=== PATIENT | male | born 1975 | race Caucasian/White ===

== ENCOUNTER 2017-01-04 13:02 | Emergency (ER) | payer OTHER, SELFPAY ==
[2017-01-04 15:07] VITALS: BP 127/93
[2017-01-04] MEDS ORDERED: Ondansetron 4 MG/2 ML SDV IVPUSH ONE (15:27)
[2017-01-04] MEDS ORDERED: LORazepam 2 MG/ML MDV IVPUSH ONE ×2 (15:27→16:54)
--- NOTE | 2017-01-04 15:28 | EDM.PDOC ---
ED HPI Behavioral Health - General Chief Complaint: Drug or Alcohol Abuse Stated Complaint: DETOX SYMPTOMS/ANXIETY Time Seen by Provider: 01/04/17 15:28 Source: Reports: Patient Exam Limitations: Reports: No limitations - History of Present Illness INITIAL COMMENTS - FREE TEXT/NARRATIVE: pt arrived stating he had his last drink yesterday. he has been very shakey. He normally drinks about 18 beers per day. He does not want to go to [place] unless he has to. He wants to try to do it on his own. Onset of Symptoms: Reports: gradual Duration of Symptoms: Reports: Week(s): Severity: moderate Context, Behavioral Health: Reports: other (pt has a friend who also has been drinking alot. ) Associated Symptoms: Reports: agitation, decreased concentration - Related Data Allergies Allergy/AdvReac Type Severity Reaction Status Date / Time amoxicillin [Amoxicillin] Allergy Cannot Verified 01/04/17 15:07 Remember codeine Allergy Cannot Verified 01/04/17 15:07 Remember erythromycin lactobionate Allergy Cannot Verified 01/04/17 15:07 [From Erythrocin] Remember Home Medications: Home Meds Ibuprofen [Advil] 200 mg PO ASDIRECTED 11/27/15 [History] Abdominal Pain Score (Numeric/FACES): 7 Past Medical History Gastrointestinal History: Reports: GERD Musculoskeletal History: Reports: Fracture Neurological History: Reports: Seizure Psychiatric History: Reports: Addiction, Depression Endocrine/Metabolic History: Reports: Other (see below) Other Endocrine/Metabolic History: hyperglycemia - Infectious Disease History Infectious Disease History: Reports: Chicken pox - Past Surgical History GI Surgical History: Reports: EGD Social & Family History - Tobacco Use Smoking Status *Q: Light Tobacco Smoker Years of Tobacco use: 10 Packs/Tins Daily: 0.5 Used Tobacco, but Quit: No Month Tobacco Last Used: May Second Hand Smoke Exposure: No - Caffeine Use Caffeine Use: Reports: Coffee - Alcohol Use Days Per Week of Alcohol Use: 7 Number of Drinks Per Day: 18 Total Drinks Per Week: 126 - Recreational Drug Use Recreational Drug Use: No ED ROS GENERAL - Review of Systems Review Of Systems: See Below Constitutional: Reports: no symptoms HEENT: Reports: No symptoms Respiratory: Reports: no symptoms Cardiovascular: Reports: No symptoms Endocrine: Reports: no symptoms GI/Abdominal: Reports: No symptoms : Reports: no symptoms Skin: Reports: no symptoms Neurological: Reports: tremors, other (pt is very shaky and is in the midst of his withdrawal. ) ED EXAM, BEHAVIORAL HEALTH - Physical Exam Exam: See Below Text/Narrative:: alot of tremors and is feeling quite agitated. Exam Limited By: No limitations General Appearance: alert, anxious Ears: normal TMs Nose: normal inspection Throat/Mouth: Normal inspection Head: atraumatic Neck: normal inspection Respiratory/Chest: no respiratory distress Cardiovascular: regular rate, rhythm GI/Abdominal: soft, tender Rectal (Males) Exam: Deferred Back Exam: normal inspection Extremities: normal inspection Neurological: alert, oriented x 3, other (pt is very agitated. ) Psychiatric: alert, normal cognition COURSE, BEHAVIORAL HEALTH COMP - Course Vital Signs: Last Vital Signs Temp 37.6 C 01/04/17 15:05 Pulse 81 01/04/17 15:05 Resp 16 01/04/17 15:05 BP 127/93 H 01/04/17 15:05 Pulse Ox 98 01/04/17 15:05 Orders, Labs, Meds: Active Orders 24 hr Category Date Time Status Sodium Chloride 0.9% [Normal Saline] 1,000 ml Med 01/04/17 15:30 Active IV ASDIRECTED Medication Orders Sodium Chloride (Normal Saline) 1,000 mls @ 999 mls/hr IV ASDIRECTED MILES Last Admin: 01/04/17 16:32 Dose: 999 mls/hr Laboratory Tests 01/04/17 01/04/17 01/04/17 Range/Units 15:48 15:48 15:48 WBC 4.3 L (4.5-11.0) K/uL RBC 4.73 (4.30-5.90) M/uL Hgb 15.5 H (12.0-15.0) g/dL Hct 45.2 (40.0-54.0) % MCV 96 (80-98) fL MCH 33 H (27-31) pg MCHC 34 (32-36) % Plt Count 108 L (150-400) K/uL Neut % (Auto) 53 (36-66) % Lymph % (Auto) 30 (24-44) % [place] % (Auto) 14 H (2-6) % Eos % (Auto) 2 (2-4) % Baso % (Auto) 2 H (0-1) % Sodium 140 (140-148) mmol/L Potassium 3.8 (3.6-5.2) mmol/L Chloride 100 (100-108) mmol/L Carbon Dioxide 28 (21-32) mmol/L Anion Gap 11.9 (5.0-14.0) mmol/L BUN 7 (7-18) mg/dL Creatinine 0.8 (0.8-1.3) mg/dL Est Cr Clr Drug Dosing 104.64 mL/min Estimated GFR (MDRD) > 60 (>60) Glucose 76 (74-106) mg/dL Calcium 9.3 (8.5-10.1) mg/dL Total Bilirubin 1.3 H D (0.2-1.0) mg/dL AST 283 H D (15-37) U/L ALT 303 H (12-78) U/L Alkaline Phosphatase 64 (46-116) U/L Total Protein 8.2 (6.4-8.2) g/dL Albumin 4.8 (3.4-5.0) g/dL Globulin 3.4 (2.3-3.5) g/dL Albumin/Globulin Ratio 1.4 (1.2-2.2) Lipase (73-393) U/L Urine Color Urine Appearance Urine pH (4.5-8.0) Ur Specific [place] (1.008-1.030) Urine Protein (NEGATIVE) mg/dL Urine Glucose (UA) (NEGATIVE) mg/dL Urine Ketones (NEGATIVE) mg/dL Urine Occult Blood (NEGATIVE) Urine Nitrite (NEGAITVE) Urine Bilirubin (NEGATIVE) Urine Urobilinogen (NORMAL) mg/dL Ur Leukocyte Esterase (NEGATIVE) Urine RBC (0-5) Urine WBC (0-5) Ur Epithelial Cells Amorphous Sediment Urine Bacteria Urine Mucus Urine Opiates Screen (NEGATIVE) Ur Oxycodone Screen (NEGATIVE) Urine Methadone Screen (NEGATIVE) Ur Propoxyphene Screen (NEGATIVE) Ur Barbiturates Screen (NEGATIVE) Ur Tricyclics Screen (NEGATIVE) Ur Phencyclidine Scrn (NEGATIVE) Ur Amphetamine Screen (NEGATIVE) U Methamphetamines Scrn (NEGATIVE) Urine MDMA Screen (NEGATIVE) U Benzodiazepines Scrn (NEGATIVE) U Cocaine Metab Screen (NEGATIVE) U Marijuana (THC) Screen (NEGATIVE) Ethyl Alcohol 82 mg/dL 03/07/17 03/07/17 03/07/17 Range/Units 15:48 15:48 16:55 WBC (4.5-11.0) K/uL RBC (4.30-5.90) M/uL Hgb (12.0-15.0) g/dL Hct (40.0-54.0) % MCV (80-98) fL MCH (27-31) pg MCHC (32-36) % Plt Count (150-400) K/uL Neut % (Auto) (36-66) % Lymph % (Auto) (24-44) % [place] % (Auto) (2-6) % Eos % (Auto) (2-4) % Baso % (Auto) (0-1) % Sodium (140-148) mmol/L Potassium (3.6-5.2) mmol/L Chloride (100-108) mmol/L Carbon Dioxide (21-32) mmol/L Anion Gap (5.0-14.0) mmol/L BUN (7-18) mg/dL Creatinine (0.8-1.3) mg/dL Est Cr Clr Drug Dosing mL/min Estimated GFR (MDRD) (>60) Glucose (74-106) mg/dL Calcium (8.5-10.1) mg/dL Total Bilirubin (0.2-1.0) mg/dL AST (15-37) U/L ALT (12-78) U/L Alkaline Phosphatase (46-116) U/L Total Protein (6.4-8.2) g/dL Albumin (3.4-5.0) g/dL Globulin (2.3-3.5) g/dL Albumin/Globulin Ratio (1.2-2.2) Lipase 221 (73-393) U/L Urine Color Yellow Urine Appearance Clear Urine pH 7.0 (4.5-8.0) Ur Specific [place] 1.005 L (1.008-1.030) Urine Protein Negative (NEGATIVE) mg/dL Urine Glucose (UA) Normal (NEGATIVE) mg/dL Urine Ketones Negative (NEGATIVE) mg/dL Urine Occult Blood Negative (NEGATIVE) Urine Nitrite Negative (NEGAITVE) Urine Bilirubin Negative (NEGATIVE) Urine Urobilinogen Normal (NORMAL) mg/dL Ur Leukocyte Esterase Negative (NEGATIVE) Urine RBC 0-5 (0-5) Urine WBC 0-5 (0-5) Ur Epithelial Cells Few Amorphous Sediment Not seen Urine Bacteria Few Urine Mucus Not seen Urine Opiates Screen Negative (NEGATIVE) Ur Oxycodone Screen Negative (NEGATIVE) Urine Methadone Screen Negative (NEGATIVE) Ur Propoxyphene Screen Negative (NEGATIVE) Ur Barbiturates Screen Negative (NEGATIVE) Ur Tricyclics Screen Negative (NEGATIVE) Ur Phencyclidine Scrn Negative (NEGATIVE) Ur Amphetamine Screen Negative (NEGATIVE) U Methamphetamines Scrn Negative (NEGATIVE) Urine MDMA Screen Negative (NEGATIVE) U Benzodiazepines Scrn Negative (NEGATIVE) U Cocaine Metab Screen Negative (NEGATIVE) U Marijuana (THC) Screen Negative (NEGATIVE) Ethyl Alcohol mg/dL Medications Generic Name Dose Route Start Last Admin Trade Name Freq PRN Reason Stop Dose Admin Sodium Chloride 1,000 mls @ 999 mls/hr 01/04/17 15:30 01/04/17 16:32 Normal Saline IV 999 mls/hr ASDIRECTED MILES Administration Discontinued Medications Generic Name Dose Route Start Last Admin Trade Name Freq PRN Reason Stop Dose Admin Lorazepam 1 mg 01/04/17 15:27 01/04/17 16:31 Ativan IVPUSH 01/04/17 15:28 1 mg ONETIME ONE Administration Lorazepam 1 mg 01/04/17 16:54 Ativan IVPUSH 01/04/17 16:55 ONETIME ONE Ondansetron HCl 4 mg 01/04/17 15:27 01/04/17 16:32 Zofran IVPUSH 01/04/17 15:28 4 mg ONETIME ONE Administration Medical Clearance: 01/04/17 17:05 Pt has elevated liver enzymes. His lipase is normal. Departure - Departure Time of Disposition: 17:07 Disposition: Home, Self-Care 01 Condition: fair Clinical Impression: Abuse, drug or alcohol Forms: ED Department Discharge Care Plan Goals: push fluids, rtc or go to [place] if not doing well. zoforan 4mg subling for nausea q6h and ativan 1 mg q4h for shaking. # 8 - My Orders Last 24 Hours: My Active Orders 01/04/17 15:30 Sodium Chloride 0.9% [Normal Saline] 1,000 ml IV ASDIRECTED - Assessment/Plan Last 24 Hours: My Active Orders 01/04/17 15:30 Sodium Chloride 0.9% [Normal Saline] 1,000 ml IV ASDIRECTED
[2017-01-04] MEDS ORDERED: Sodium Chloride 0.9% 1,000 ML IV SCH (15:30)
== END 2017-01-04 17:54 | disposition home or self-care (01) ==
LOC: JP.ED 13:02
DX: F10.10 Alcohol abuse, uncomplicated (principal); F17.210 Nicotine dependence, cigarettes, uncomplicated; Z88.1 Allergy status to other antibiotic agents; Z88.5 Allergy status to narcotic agent
CPT/HCPCS: 36415; 80053; 80305; 81001; 83690; 85025; 96361; 96374; 96375; 96376; 99284; G0480; J2060; J2405; J7040

== ENCOUNTER 2017-04-28 09:41 | Emergency (ER) | payer OTHER, SELFPAY ==
[2017-04-28] MEDS ORDERED: Sodium Chloride 0.9% 10 ML Syringe FLUSH PRN (10:07)
[2017-04-28] MEDS ORDERED: MVI, Adult with Vitamin K 10 ML, Thiamine 200 MG, Folic Acid 1 MG, Magnesium Sulfate 2 ... IV ONE ×10 (10:10→10:45)
[2017-04-28] MEDS ORDERED: Ondansetron 4 MG/2 ML SDV IVPUSH ONE (10:10)
--- NOTE | 2017-04-28 10:14 | EDM.PDOC ---
ED HPI GENERAL MEDICAL PROBLEM - General Chief Complaint: Drug or Alcohol Abuse Stated Complaint: DETOX,ABDOMINAL PAIN Time Seen by Provider: 04/28/17 10:12 Source of Information: Reports: Patient, Old Records, RN Notes Reviewed History Limitations: Reports: No Limitations - History of Present Illness INITIAL COMMENTS - FREE TEXT/NARRATIVE: 42-year-old gentleman presents emergency department today with complaint of alcohol withdrawal, he has a known history of alcohol abuse and dependence has gone through withdrawal multiple times last was in December of this year he did withdraw himself he states it went well for him he was actually sober for a couple of months, he recently started consuming alcohol again he's been on a 2 week binge usually drinks beer he states his last alcohol use was last night Abdominal Pain Score (Numeric/FACES): 8 - Related Data Allergies Allergy/AdvReac Type Severity Reaction Status Date / Time amoxicillin [Amoxicillin] Allergy Cannot Verified 04/28/17 09:55 Remember codeine Allergy Cannot Verified 04/28/17 09:55 Remember erythromycin lactobionate Allergy Cannot Verified 04/28/17 09:55 [From Erythrocin] Remember Home Meds: Home Meds Ibuprofen [Advil] 200 mg PO ASDIRECTED 11/27/15 [History] Past Medical History Gastrointestinal History: Reports: GERD Musculoskeletal History: Reports: Fracture Neurological History: Reports: Seizure Psychiatric History: Reports: Addiction (Alcohol), Depression Endocrine/Metabolic History: Reports: Other (See Below) Other Endocrine/Metabolic History: hyperglycemia - Infectious Disease History Infectious Disease History: Reports: Chicken Pox - Past Surgical History GI Surgical History: Reports: EGD Social & Family History - Tobacco Use Smoking Status *Q: Current Some Day Smoker Years of Tobacco use: 10 Packs/Tins Daily: 0.2 Used Tobacco, but Quit: No Month Tobacco Last Used: May Second Hand Smoke Exposure: No - Caffeine Use Caffeine Use: Reports: Coffee - Alcohol Use Days Per Week of Alcohol Use: 7 Number of Drinks Per Day: 18 Total Drinks Per Week: 126 - Recreational Drug Use Recreational Drug Use: No ED ROS GENERAL - Review of Systems Review Of Systems: See Below Constitutional: Reports: Decreased Appetite. Denies: Fever, Chills HEENT: Reports: No Symptoms Respiratory: Reports: No Symptoms Cardiovascular: Reports: No Symptoms GI/Abdominal: Reports: Abdominal Pain, Nausea. Denies: Vomiting : Reports: No Symptoms Musculoskeletal: Reports: No Symptoms Skin: Reports: No Symptoms Neurological: Reports: Tremors Psychiatric: Reports: No Symptoms ED EXAM, BEHAVIORAL HEALTH - Physical Exam Exam: See Below Text/Narrative:: General: Male, moderate discomfort secondary to withdrawal visibly tremulous, alert and oriented x3 HEENT: head is atraumatic normocephalic, eyes pupils equal round reactive to light, sclera clear no conjunctivitis appreciated. Ears tympanic membranes clear and chaudhary landmarks and light reflex are present bilaterally canals are clear. Nose no septal deviation, nares are clear, no blood present. Mouth mucosa is moist and pink no erythema or exudate noted in soft palate, tongue is midline uvula is midline, dentition is intact. Neck: Supple no thyromegaly no tracheal deviation. Nodes: Cervical nodes subclavicular nodes nontender no palpable lymphadenopathy noted. Lungs: clear to auscultation bilaterally with symmetrical respirations, no adventitious noise appreciated. CV: Tachycardic rate and rhythm S1 and S2 appreciated no murmurs rubs or gallops noted. Abdomen: Soft, nontender, no palpable masses or organomegaly appreciated, no distention no guarding bowel sounds are present, . Neuro: Cranial nerves II through XII grossly intact Skin: Warm and dry, intact Extremities: No lower extremity edema appreciated COURSE, BEHAVIORAL HEALTH COMP - Course Vital Signs: Last Vital Signs Temp 99.6 F 04/28/17 09:53 Pulse 96 04/28/17 12:44 Resp 18 04/28/17 12:44 BP 134/77 04/28/17 12:44 Pulse Ox 93 L 04/28/17 12:44 Orders, Labs, Meds: Active Orders 24 hr Category Date Time Status Peripheral IV Care [RC] . DIRECTED Care 04/28/17 10:10 Active PHOSPHORUS [CHEM] AM Lab 04/29/17 06:00 Ordered LORazepam [Ativan] Med 04/28/17 10:10 Active 1 mg IVPUSH Q1H PRN Sodium Chloride 0.9% [Saline Flush] Med 04/28/17 10:07 Active 10 ml FLUSH ASDIRECTED PRN Peripheral IV Insertion Adult [OM.PC] Urgent Oth 04/28/17 10:07 Ordered Medication Orders Lorazepam (Ativan) 1 mg IVPUSH Q1H PRN PRN Reason: Withdrawal Symptoms Last Admin: 04/28/17 12:38 Dose: 1 mg Admin: 04/28/17 10:57 Dose: 1 mg Sodium Chloride (Saline Flush) 10 ml FLUSH ASDIRECTED PRN PRN Reason: Keep Vein Open Last Admin: 04/28/17 11:01 Dose: 10 ml Laboratory Tests 04/28/17 04/28/17 04/28/17 Range/Units 10:19 10:19 10:19 WBC 4.6 (4.5-11.0) K/uL RBC 4.79 (4.30-5.90) M/uL Hgb 15.8 H (12.0-15.0) g/dL Hct 44.6 (40.0-54.0) % MCV 93 (80-98) fL MCH 33 H (27-31) pg MCHC 35 (32-36) % Plt Count 90 L (150-400) K/uL Neut % (Auto) 71 H (36-66) % Lymph % (Auto) 16 L (24-44) % [place] % (Auto) 10 H (2-6) % Eos % (Auto) 1 L (2-4) % Baso % (Auto) 2 H (0-1) % PT (9.5-12.0) sec INR (0.80-1.20) Sodium 137 L (140-148) mmol/L Potassium 3.9 (3.6-5.2) mmol/L Chloride 95 L (100-108) mmol/L Carbon Dioxide 28 (21-32) mmol/L Anion Gap 17.9 H (5.0-14.0) mmol/L BUN 5 L (7-18) mg/dL Creatinine 0.8 (0.8-1.3) mg/dL Est Cr Clr Drug Dosing 103.57 mL/min Estimated GFR (MDRD) > 60 (>60) Glucose 87 (74-106) mg/dL Calcium 9.2 (8.5-10.1) mg/dL Magnesium (1.8-2.4) mg/dL Total Bilirubin 1.4 H (0.2-1.0) mg/dL AST 493 H (15-37) U/L ALT 323 H (12-78) U/L Alkaline Phosphatase 86 (46-116) U/L Total Protein 8.0 (6.4-8.2) g/dL Albumin 4.6 (3.4-5.0) g/dL Globulin 3.4 (2.3-3.5) g/dL Albumin/Globulin Ratio 1.4 (1.2-2.2) Urine Color Urine Appearance Urine pH (4.5-8.0) Ur Specific [place] (1.008-1.030) Urine Protein (NEGATIVE) mg/dL Urine Glucose (UA) (NEGATIVE) mg/dL Urine Ketones (NEGATIVE) mg/dL Urine Occult Blood (NEGATIVE) Urine Nitrite (NEGAITVE) Urine Bilirubin (NEGATIVE) Urine Urobilinogen (NORMAL) mg/dL Ur Leukocyte Esterase (NEGATIVE) Urine RBC (0-5) Urine WBC (0-5) Ur Epithelial Cells Amorphous Sediment Urine Bacteria Urine Mucus Urine Opiates Screen (NEGATIVE) Ur Oxycodone Screen (NEGATIVE) Urine Methadone Screen (NEGATIVE) Ur Propoxyphene Screen (NEGATIVE) Ur Barbiturates Screen (NEGATIVE) Ur Tricyclics Screen (NEGATIVE) Ur Phencyclidine Scrn (NEGATIVE) Ur Amphetamine Screen (NEGATIVE) U Methamphetamines Scrn (NEGATIVE) Urine MDMA Screen (NEGATIVE) U Benzodiazepines Scrn (NEGATIVE) U Cocaine Metab Screen (NEGATIVE) U Marijuana (THC) Screen (NEGATIVE) Ethyl Alcohol 149 mg/dL 04/28/17 04/28/17 04/28/17 Range/Units 10:19 10:19 13:11 WBC (4.5-11.0) K/uL RBC (4.30-5.90) M/uL Hgb (12.0-15.0) g/dL Hct (40.0-54.0) % MCV (80-98) fL MCH (27-31) pg MCHC (32-36) % Plt Count (150-400) K/uL Neut % (Auto) (36-66) % Lymph % (Auto) (24-44) % [place] % (Auto) (2-6) % Eos % (Auto) (2-4) % Baso % (Auto) (0-1) % PT 10.0 (9.5-12.0) sec INR 0.94 (0.80-1.20) Sodium (140-148) mmol/L Potassium (3.6-5.2) mmol/L Chloride (100-108) mmol/L Carbon Dioxide (21-32) mmol/L Anion Gap (5.0-14.0) mmol/L BUN (7-18) mg/dL Creatinine (0.8-1.3) mg/dL Est Cr Clr Drug Dosing mL/min Estimated GFR (MDRD) (>60) Glucose (74-106) mg/dL Calcium (8.5-10.1) mg/dL Magnesium 2.2 (1.8-2.4) mg/dL Total Bilirubin (0.2-1.0) mg/dL AST (15-37) U/L ALT (12-78) U/L Alkaline Phosphatase (46-116) U/L Total Protein (6.4-8.2) g/dL Albumin (3.4-5.0) g/dL Globulin (2.3-3.5) g/dL Albumin/Globulin Ratio (1.2-2.2) Urine Color Yellow Urine Appearance Clear Urine pH 6.0 (4.5-8.0) Ur Specific [place] 1.010 (1.008-1.030) Urine Protein 30 H (NEGATIVE) mg/dL Urine Glucose (UA) 250 H (NEGATIVE) mg/dL Urine Ketones 15 H (NEGATIVE) mg/dL Urine Occult Blood Negative (NEGATIVE) Urine Nitrite Negative (NEGAITVE) Urine Bilirubin Negative (NEGATIVE) Urine Urobilinogen 1 (NORMAL) mg/dL Ur Leukocyte Esterase Negative (NEGATIVE) Urine RBC 0-5 (0-5) Urine WBC Not seen (0-5) Ur Epithelial Cells Rare Amorphous Sediment Rare Urine Bacteria Not seen Urine Mucus Not seen Urine Opiates Screen (NEGATIVE) Ur Oxycodone Screen (NEGATIVE) Urine Methadone Screen (NEGATIVE) Ur Propoxyphene Screen (NEGATIVE) Ur Barbiturates Screen (NEGATIVE) Ur Tricyclics Screen (NEGATIVE) Ur Phencyclidine Scrn (NEGATIVE) Ur Amphetamine Screen (NEGATIVE) U Methamphetamines Scrn (NEGATIVE) Urine MDMA Screen (NEGATIVE) U Benzodiazepines Scrn (NEGATIVE) U Cocaine Metab Screen (NEGATIVE) U Marijuana (THC) Screen (NEGATIVE) Ethyl Alcohol mg/dL 04/28/17 Range/Units 13:11 WBC (4.5-11.0) K/uL RBC (4.30-5.90) M/uL Hgb (12.0-15.0) g/dL Hct (40.0-54.0) % MCV (80-98) fL MCH (27-31) pg MCHC (32-36) % Plt Count (150-400) K/uL Neut % (Auto) (36-66) % Lymph % (Auto) (24-44) % [place] % (Auto) (2-6) % Eos % (Auto) (2-4) % Baso % (Auto) (0-1) % PT (9.5-12.0) sec INR (0.80-1.20) Sodium (140-148) mmol/L Potassium (3.6-5.2) mmol/L Chloride (100-108) mmol/L Carbon Dioxide (21-32) mmol/L Anion Gap (5.0-14.0) mmol/L BUN (7-18) mg/dL Creatinine (0.8-1.3) mg/dL Est Cr Clr Drug Dosing mL/min Estimated GFR (MDRD) (>60) Glucose (74-106) mg/dL Calcium (8.5-10.1) mg/dL Magnesium (1.8-2.4) mg/dL Total Bilirubin (0.2-1.0) mg/dL AST (15-37) U/L ALT (12-78) U/L Alkaline Phosphatase (46-116) U/L Total Protein (6.4-8.2) g/dL Albumin (3.4-5.0) g/dL Globulin (2.3-3.5) g/dL Albumin/Globulin Ratio (1.2-2.2) Urine Color Urine Appearance Urine pH (4.5-8.0) Ur Specific [place] (1.008-1.030) Urine Protein (NEGATIVE) mg/dL Urine Glucose (UA) (NEGATIVE) mg/dL Urine Ketones (NEGATIVE) mg/dL Urine Occult Blood (NEGATIVE) Urine Nitrite (NEGAITVE) Urine Bilirubin (NEGATIVE) Urine Urobilinogen (NORMAL) mg/dL Ur Leukocyte Esterase (NEGATIVE) Urine RBC (0-5) Urine WBC (0-5) Ur Epithelial Cells Amorphous Sediment Urine Bacteria Urine Mucus Urine Opiates Screen Negative (NEGATIVE) Ur Oxycodone Screen Negative (NEGATIVE) Urine Methadone Screen Negative (NEGATIVE) Ur Propoxyphene Screen Negative (NEGATIVE) Ur Barbiturates Screen Negative (NEGATIVE) Ur Tricyclics Screen Negative (NEGATIVE) Ur Phencyclidine Scrn Negative (NEGATIVE) Ur Amphetamine Screen Negative (NEGATIVE) U Methamphetamines Scrn Negative (NEGATIVE) Urine MDMA Screen Negative (NEGATIVE) U Benzodiazepines Scrn Positive H (NEGATIVE) U Cocaine Metab Screen Negative (NEGATIVE) U Marijuana (THC) Screen Negative (NEGATIVE) Ethyl Alcohol mg/dL Medications Generic Name Dose Route Start Last Admin Trade Name Freq PRN Reason Stop Dose Admin Lorazepam 1 mg 04/28/17 10:10 04/28/17 12:38 Ativan IVPUSH 1 mg Q1H PRN Administration Withdrawal Symptoms Sodium Chloride 10 ml 04/28/17 10:07 04/28/17 11:01 Saline Flush FLUSH 10 ml ASDIRECTED PRN Administration Keep Vein Open Discontinued Medications Generic Name Dose Route Start Last Admin Trade Name Freq PRN Reason Stop Dose Admin Hydromorphone HCl 1 mg 04/28/17 12:07 04/28/17 12:40 Dilaudid IVPUSH 04/28/17 12:08 1 mg ONETIME ONE Administration Multivitamins/Minerals 10 ml/ 1,016.2 mls @ 500 mls/hr 04/28/17 10:45 10:59 Thiamine HCl 200 mg/ Folic IV 04/28/17 12:46 500 mls/hr Acid 1 mg/ Magnesium Sulfate 2 ONETIME ONE Administration gm/ Dextrose/Lactated Ringer' s Ondansetron HCl 4 mg 04/28/17 10:10 04/28/17 10:58 Zofran IVPUSH 04/28/17 10:11 4 mg ONETIME ONE Administration Departure - Departure Time of Disposition: 13:47 Disposition: Home, Self-Care 01 Condition: Fair Clinical Impression: Abuse, drug or alcohol - Discharge Information Forms: ED Department Discharge Additional Instructions: Use Ativan as prescribed, Please followup with your primary care provider in 2 -3 days if not better, please call return to the emergency department with worsening of symptoms. - My Orders Last 24 Hours: My Active Orders 04/28/17 10:07 Sodium Chloride 0.9% [Saline Flush] 10 ml FLUSH ASDIRECTED PRN Peripheral IV Insertion Adult [OM.PC] Urgent 04/28/17 10:10 Peripheral IV Care [RC] . DIRECTED LORazepam [Ativan] 1 mg IVPUSH Q1H PRN 04/29/17 06:00 PHOSPHORUS [CHEM] AM - Assessment/Plan Last 24 Hours: My Active Orders 04/28/17 10:07 Sodium Chloride 0.9% [Saline Flush] 10 ml FLUSH ASDIRECTED PRN Peripheral IV Insertion Adult [OM.PC] Urgent 04/28/17 10:10 Peripheral IV Care [RC] . DIRECTED LORazepam [Ativan] 1 mg IVPUSH Q1H PRN 04/29/17 06:00 PHOSPHORUS [CHEM] AM Plan: Assessment Acuity = acute on chronic Site and laterality = alcohol intoxication with withdrawal symptomology Etiology = EtOH Manifestations = tremors Location of injury = Home Lab values = CBC unremarkable, sodium low at 137 consistent hyponatremia total bilirubin elevated 1.4 consistent with hyperbilirubinemia AST elevated at 493 ALTs elevated at 323 consistent with elevated liver enzymes urinalysis reveals 250 glucose consistent glucose urea EtOH elevated at 149 urine drug screen positive for benzodiazepines Plan I did offer him hospital admission to help with his growth symptoms he declined therefore he is going to try this at home I did provide him a prescription and instructions for Ativan to be used during his withdrawal over the next couple days Patient was in agreement with the plan all questions were answered, they were instructed to return to the emergency department or call for worsening symptoms. This note was dictated using [employer] voice recognition software please call with any questions.
[2017-04-28] MEDS: LORazepam 2 MG/ML MDV IVPUSH PRN ×2 (10:57→12:38)
[2017-04-28] MEDS ORDERED: HYDROmorphone 1 MG/ML Syringe IVPUSH ONE (12:07)
[2017-04-28 12:45] VITALS: BP 134/77
== END 2017-04-28 14:03 | disposition home or self-care (01) ==
LOC: JP.ED 09:41
DX: F10.10 Alcohol abuse, uncomplicated (principal); Y90.6 Blood alcohol level of 120-199 mg/100 ml; F17.210 Nicotine dependence, cigarettes, uncomplicated; F32.9 Major depressive disorder, single episode, unspecified; K21.9 Gastro-esophageal reflux disease without esophagitis; Z88.5 Allergy status to narcotic agent; Z88.1 Allergy status to other antibiotic agents
CPT/HCPCS: 36415; 80053; 80305; 81001; 83735; 85025; 85610; 96365; 96366; 96375; 99284; G0480; J1170; J2060; J2405; J3411; J3475; J7042; J7050; J3490

== ENCOUNTER 2017-05-02 11:22 | Emergency (ER) | payer OTHER, SELFPAY ==
[2017-05-02 12:14] VITALS: BP 118/84
[2017-05-02] MEDS ORDERED: LORazepam 0.5 MG Tab PO ONE (12:24)
[2017-05-02] MEDS ORDERED: Sodium Chloride 0.9% 1,000 ML IV SCH ×2 (13:15→13:45)
--- NOTE | 2017-05-02 13:33 | EDM.PDOC ---
[id number]: LUMP ON LT LEG CALF, LEG THROBS AND HOT Time Seen by Provider: 05/02/17 12:15 Source of Information: Reports: Patient, Family History Limitations: Reports: No Limitations - History of Present Illness INITIAL COMMENTS - FREE TEXT/NARRATIVE: pt has a lump behind his uppercalf of the left leg. He states he has not noted this in the past. Pt states this is not real painful. Onset: Today Duration: Hour(s):, Other (pt isalso feeling very shakey and lite headed. He quitdrinking on the and he thinks he is doing ok except being liteheaded. ) Location: Reports: Lower Extremity, Left Associated Symptoms: Reports: Other ( shakey from withdrawal) Left Leg Pain Score (Numeric/FACES): 2 - Related Data Allergies Allergy/AdvReac Type Severity Reaction Status Date / Time amoxicillin [Amoxicillin] Allergy Cannot Verified 05/02/17 23:58 Remember codeine Allergy Cannot Verified 05/02/17 23:58 Remember erythromycin lactobionate Allergy Cannot Verified 05/02/17 23:58 [From Erythrocin] Remember Home Meds: Home Meds Ibuprofen [Advil] 200 mg PO ASDIRECTED 11/27/15 [History] Past Medical History Gastrointestinal History: Reports: GERD Musculoskeletal History: Reports: Fracture Neurological History: Reports: Seizure Psychiatric History: Reports: Addiction, Depression Endocrine/Metabolic History: Reports: Other (See Below) Other Endocrine/Metabolic History: hyperglycemia - Infectious Disease History Infectious Disease History: Reports: Chicken Pox - Past Surgical History GI Surgical History: Reports: EGD Social & Family History - Tobacco Use Smoking Status *Q: Light Tobacco Smoker Years of Tobacco use: 9 Packs/Tins Daily: 0.5 Used Tobacco, but Quit: No Month Tobacco Last Used: May Second Hand Smoke Exposure: No - Caffeine Use Caffeine Use: Reports: Coffee - Alcohol Use Days Per Week of Alcohol Use: 7 Number of Drinks Per Day: 18 Total Drinks Per Week: 126 - Recreational Drug Use Recreational Drug Use: No ED ROS GENERAL - Review of Systems Review Of Systems: See Below Constitutional: Reports: No Symptoms HEENT: Reports: No Symptoms Respiratory: Reports: No Symptoms Cardiovascular: Reports: No Symptoms Endocrine: Reports: No Symptoms GI/Abdominal: Reports: No Symptoms : Reports: No Symptoms Musculoskeletal: Reports: Other (pt is very shajkey and he has a lump behind his left leg. ) Neurological: Reports: Other ( shakey) ED EXAM, SKIN/RASH Exam: See Below Text/Narrative:: pt arrived feeling very shakey and he has a lump behind his left leg and wonders about a clot. Exam Limited By: No Limitations General Appearance: Alert, Anxious, Other ( very shakey) Ears: Normal TMs Nose: Normal Inspection Throat/Mouth: Normal Inspection Head: Atraumatic Neck: Normal Inspection Respiratory/Chest: No Respiratory Distress Cardiovascular: Regular Rate, Rhythm, Tachycardia GI/Abdominal: Soft, Non-Tender Extremities: Other ( left leg is not swollen he has a palbable varcose faraz in two places that are not hard or tender. ) Neurological: Alert, Oriented, Normal Cognition Psychiatric: Normal Affect Course - Vital Signs Last Recorded V/S: Last Vital Signs Temp 37.4 C 05/02/17 12:46 Pulse 73 05/02/17 12:46 Resp 14 05/02/17 12:46 BP 118/84 05/02/17 12:46 Pulse Ox 99 05/02/17 12:46 - Orders/Labs/Meds Labs: Laboratory Tests 05/02/17 05/02/17 Range/Units 12:23 12:30 WBC 5.3 (4.5-11.0) K/uL RBC 4.89 (4.30-5.90) M/uL Hgb 16.3 H (12.0-15.0) g/dL Hct 47.2 (40.0-54.0) % MCV 97 (80-98) fL MCH 33 H (27-31) pg MCHC 35 (32-36) % Plt Count 138 L (150-400) K/uL Neut % (Auto) 63 (36-66) % Lymph % (Auto) 19 L (24-44) % [place] % (Auto) 15 H (2-6) % Eos % (Auto) 1 L (2-4) % Baso % (Auto) 2 H (0-1) % Sodium 140 (140-148) mmol/L Potassium 4.1 (3.6-5.2) mmol/L Chloride 101 (100-108) mmol/L Carbon Dioxide 29 (21-32) mmol/L Anion Gap 10.1 (5.0-14.0) mmol/L BUN 5 L (7-18) mg/dL Creatinine 0.8 (0.8-1.3) mg/dL Est Cr Clr Drug Dosing 101.04 mL/min Estimated GFR (MDRD) > 60 (>60) Glucose 101 (74-106) mg/dL Calcium 10.0 (8.5-10.1) mg/dL Total Bilirubin 1.4 H (0.2-1.0) mg/dL AST 214 H (15-37) U/L ALT 348 H (12-78) U/L Alkaline Phosphatase 79 (46-116) U/L Total Protein 8.9 H (6.4-8.2) g/dL Albumin 4.9 (3.4-5.0) g/dL Globulin 4.0 H (2.3-3.5) g/dL Albumin/Globulin Ratio 1.2 (1.2-2.2) Meds: Medications Discontinued Medications Generic Name Dose Route Start Last Admin Trade Name Freq PRN Reason Stop Dose Admin Sodium Chloride 1,000 mls @ 999 mls/hr 05/02/17 13:15 05/02/17 13:33 Normal Saline IV 999 mls/hr ASDIRECTED MILES Administration Sodium Chloride 1,000 mls @ 999 mls/hr 05/02/17 13:45 Normal Saline IV ASDIRECTED MILES Lorazepam 0.5 mg 05/02/17 12:24 05/02/17 12:50 Ativan PO 05/02/17 12:25 Not Given ONETIME ONE - Re-Assessments/Exams Free Text/Narrative Re-Assessment/Exam: 05/02/17 13:33 us was neg on the leg. His electrolytes show that he is dry. Will giv 2 liters of fluids and discharge home. Departure - Departure Time of Disposition: 14:40 Disposition: Home, Self-Care 01 Condition: Fair Clinical Impression: Dehydration, Alcohol withdrawal, Varicose vein of leg - Discharge Information Instructions: Alcohol Use Disorder, Varicose Veins, Dehydration, Adult, Easy-to -Read Referrals: Aj Cox MD [Primary Care Provider] - Forms: ED Department Discharge Care Plan Goals: push fluids rtc if problems.
--- NOTE | 2017-05-02 14:53 | US ---
VL Duplex Lwr Ext Veins Ltd Lt FINDINGS: Ultrasound examination of the left lower extremity using Doppler and compressive technique demonstrates that the common femoral, femoral, and popliteal veins are patent, and negative for thr ombus. The calf veins were segmentally visualized and are negative where seen. IMPRESSION: Lower extremity negative for deep venous thrombosis.
== END 2017-05-02 14:40 | disposition home or self-care (01) ==
LOC: JP.ED 11:22
DX: I83.92 Asymptomatic varicose veins of left lower extremity (principal); E86.0 Dehydration; F10.239 Alcohol dependence with withdrawal, unspecified; K21.9 Gastro-esophageal reflux disease without esophagitis; F32.9 Major depressive disorder, single episode, unspecified; F17.210 Nicotine dependence, cigarettes, uncomplicated; Z88.5 Allergy status to narcotic agent; Z88.1 Allergy status to other antibiotic agents
CPT/HCPCS: 36415; 80053; 85025; 93971; 99284; J7040

== ENCOUNTER 2017-05-02 23:21 | Emergency (ER) | payer OTHER, SELFPAY ==
[2017-05-03 00:08] VITALS: BP 125/86
--- NOTE | 2017-05-03 00:30 | EDM.PDOC ---
[id number] WOKE UP AND TONGUE IS NUMB AND FACE BRUISED Time Seen by Provider: 05/03/17 00:05 Source of Information: Reports: Patient History Limitations: Reports: Altered Mental Status - History of Present Illness INITIAL COMMENTS - FREE TEXT/NARRATIVE: 42-year-old chronic alcoholic who has not drank since April 28, 4 days, arrives with some abrasions on his head and some injury to the distal aspect of his tongue. He was given some Ativan 4 days ago when he was in the emergency room to help him with alcohol withdrawal, his alcohol level at that time was 0.15. Tonight he aches all over, has some facial abrasions and is slightly confused. He thinks he is "allergic to the Ativan as he took his first dose tonight". No nausea or vomiting. Onset: Unknown/Unsure Location: Reports: Head, Face Severity: Moderate Associated Symptoms: Reports: Malaise, Other (Generalized body aches) Face Pain Score (Numeric/FACES): 8 - Related Data Allergies Allergy/AdvReac Type Severity Reaction Status Date / Time amoxicillin [Amoxicillin] Allergy Cannot Verified 05/02/17 23:58 Remember codeine Allergy Cannot Verified 05/02/17 23:58 Remember erythromycin lactobionate Allergy Cannot Verified 05/02/17 23:58 [From Erythrocin] Remember Home Meds: Home Meds Ibuprofen [Advil] 200 mg PO ASDIRECTED 11/27/15 [History] Past Medical History Gastrointestinal History: Reports: GERD Musculoskeletal History: Reports: Fracture Neurological History: Reports: Seizure Psychiatric History: Reports: Addiction, Depression Endocrine/Metabolic History: Reports: Other (See Below) Other Endocrine/Metabolic History: hyperglycemia - Infectious Disease History Infectious Disease History: Reports: Chicken Pox - Past Surgical History GI Surgical History: Reports: EGD Social & Family History - Tobacco Use Smoking Status *Q: Light Tobacco Smoker Years of Tobacco use: 16 Packs/Tins Daily: 0.1 Used Tobacco, but Quit: No Month Tobacco Last Used: May Second Hand Smoke Exposure: No - Caffeine Use Caffeine Use: Reports: Coffee - Alcohol Use Days Per Week of Alcohol Use: 7 Number of Drinks Per Day: 12 Total Drinks Per Week: 84 Date of Last Drink: 04/21/17 - Recreational Drug Use Recreational Drug Use: No ED ROS GENERAL - Review of Systems Review Of Systems: See Below Constitutional: Reports: Malaise, Weakness HEENT: Reports: Other (Swollen painful distal tongue) Respiratory: Denies: Shortness of Breath Cardiovascular: Denies: Chest Pain GI/Abdominal: Reports: Nausea. Denies: Vomiting : Reports: No Symptoms Musculoskeletal: Reports: Muscle Pain (Aches all over) Skin: Reports: Other (Facial abrasions) Neurological: Reports: Seizure ED EXAM, GENERAL - Physical Exam Exam: See Below Exam Limited By: Altered Mental Status (Somewhat confused, anxious) General Appearance: Alert, Anxious Eye Exam: Bilateral Eye: Normal Inspection Throat/Mouth: Other (Some contusions on the tip of his tongue are present) Head: Other (patient has several superficial abrasions on the forehead left cheek and perioral area) Respiratory/Chest: Lungs Clear GI/Abdominal: Non-Tender Neurological: Alert, Oriented, Other (Persistent light tremor) Course - Vital Signs Last Recorded V/S: Last Vital Signs Temp 97.8 F 05/03/17 00:01 Pulse 100 05/03/17 00:01 Resp 20 05/03/17 00:01 BP 125/86 05/03/17 00:01 Pulse Ox 97 05/03/17 00:01 - Re-Assessments/Exams Free Text/Narrative Re-Assessment/Exam: 05/03/17 02:31 Reviewed the patient's workup from 4 days ago which was thorough. This would be the peak time for alcohol withdrawal to be having a seizure which was likely with the injuries presented. He was underutilizing the Ativan. I encouraged him to use Ativan every 4-6 hours for the next 2 days and return if not improving. Departure - Departure Time of Disposition: 00:40 Disposition: Home, Self-Care 01 Condition: Fair Clinical Impression: Facial abrasion Qualifiers: Encounter type: initial encounter Qualified Code(s): S00.81XA - Abrasion of other part of head, initial encounter Tongue wound Qualifiers: Encounter type: initial encounter Qualified Code(s): S01.502A - Unspecified open wound of oral cavity, initial encounter Alcohol withdrawal Qualifiers: Complication of substance-induced condition: uncomplicated Qualified Code(s): F10.230 - Alcohol dependence with withdrawal, uncomplicated - Discharge Information Instructions: Alcohol Use Disorder, Chemical Dependency, Tongue Laceration, [id number], Abrasion, [id number] Referrals: Aj Cox MD [Primary Care Provider] - Forms: ED Department Discharge Care Plan Goals: Take Ativan 1 every 4-6 hours for the next 2 days. Return if worsening or concerns, avoid alcohol.
== END 2017-05-03 00:40 | disposition home or self-care (01) ==
LOC: JP.ED 23:21
DX: S01.502A Unspecified open wound of oral cavity, initial encounter (principal); S00.81XA Abrasion of other part of head, initial encounter; F10.230 Alcohol dependence with withdrawal, uncomplicated; K21.9 Gastro-esophageal reflux disease without esophagitis; F17.210 Nicotine dependence, cigarettes, uncomplicated; Z88.1 Allergy status to other antibiotic agents; Z88.5 Allergy status to narcotic agent; X58.XXXA Exposure to other specified factors, initial encounter
CPT/HCPCS: 96360; 99283; 99284-25

== ENCOUNTER 2018-02-11 14:48 | Emergency (ER) | payer BC, OTHER, SELFPAY ==
--- NOTE | 2018-02-11 15:43 | EDM.PDOC ---
ED HPI GENERAL MEDICAL PROBLEM - General Chief Complaint: Chest Pain Stated Complaint: CHEST PAINS Time Seen by Provider: 02/11/18 15:35 Source of Information: Reports: Patient, Old Records, RN History Limitations: Reports: No Limitations - History of Present Illness INITIAL COMMENTS - FREE TEXT/NARRATIVE: 42 yo male presents with sternal pain since this morning that he describes as pins and needles. No associated sx's. Has no cardiac hx. Was drinking alcohol heavily until about 2 days ago. Vomited yesterday. Feels dry. Does not want to go to detox. Onset: Today Onset Date: 02/11/18 Duration: Hour(s): Location: Reports: Chest Quality: Reports: Other (prickly) Severity: Mild Improves with: Reports: None Worsens with: Reports: None Context: Reports: Other (ETOH abuse ) Associated Symptoms: Reports: Diaphoresis (mild at times), Nausea/Vomiting ( yesterday). Denies: Fever/Chills, Shortness of Breath Treatments COMPENSATION SUPERVISOR: Reports: Other (see below) (none) Chest Pain Score (Numeric/FACES): 7 - Related Data Allergies Allergy/AdvReac Type Severity Reaction Status Date / Time amoxicillin [Amoxicillin] Allergy Cannot Verified 02/11/18 15:28 Remember codeine Allergy Cannot Verified 02/11/18 15:28 Remember erythromycin lactobionate Allergy Cannot Verified 02/11/18 15:28 [From Erythrocin] Remember Home Meds: Home Meds NK [No Known Home Meds] 02/11/18 [History] Past Medical History Gastrointestinal History: Reports: GERD Musculoskeletal History: Reports: Fracture Neurological History: Reports: Seizure Psychiatric History: Reports: Addiction, Anxiety, Depression Endocrine/Metabolic History: Reports: Other (See Below) Other Endocrine/Metabolic History: hyperglycemia - Infectious Disease History Infectious Disease History: Reports: Chicken Pox - Past Surgical History GI Surgical History: Reports: EGD Social & Family History - Tobacco Use Smoking Status *Q: Unknown Ever Smoked Years of Tobacco use: 16 Packs/Tins Daily: 0.1 Used Tobacco, but Quit: No Month/Year Tobacco Last Used: May Second Hand Smoke Exposure: No - Caffeine Use Caffeine Use: Reports: Coffee - Alcohol Use Days Per Week of Alcohol Use: 7 Number of Drinks Per Day: 12 Total Drinks Per Week: 84 - Recreational Drug Use Recreational Drug Use: No ED ROS GENERAL - Review of Systems Review Of Systems: See Below Constitutional: Reports: No Symptoms HEENT: Reports: No Symptoms Respiratory: Reports: No Symptoms Cardiovascular: Reports: Chest Pain Endocrine: Reports: No Symptoms GI/Abdominal: Reports: Nausea, Vomiting (better today than yesterday.). Denies : Black Stool, Bloody Stool, Hematemesis, Hematochezia, Melena : Reports: No Symptoms Musculoskeletal: Reports: No Symptoms Skin: Reports: Diaphoresis (mild at times) Neurological: Reports: Tremors Psychiatric: Reports: No Symptoms ED EXAM, GENERAL - Physical Exam Exam: See Below Exam Limited By: No Limitations General Appearance: Alert, WD/WN, No Apparent Distress Eye Exam: Right Eye: Other, Bilateral Eye: Normal Inspection Ears: Normal External Exam, Normal Canal, Hearing Grossly Normal, Normal TMs Ear Exam: Bilateral Ear: Auricle Normal, Canal Normal, TM normal Nose: Normal Inspection, Normal Mucosa, No Blood Throat/Mouth: Normal Inspection, Normal Lips, Normal Oropharynx, Normal Voice, No Airway Compromise Head: Atraumatic, Normocephalic Neck: Normal Inspection, Supple, Non-Tender Respiratory/Chest: No Respiratory Distress, Lungs Clear, Normal Breath Sounds, No Accessory Muscle Use, Chest Non-Tender Cardiovascular: Regular Rate, Rhythm, No Edema GI/Abdominal: Normal Bowel Sounds, Soft, No Distention, Tender (epigastrium) Back Exam: Normal Inspection. No: CVA Tenderness (R), CVA Tenderness (L) Extremities: Normal Inspection, Normal Range of Motion, Non-Tender, No Pedal Edema Neurological: Alert, Oriented, CN II-XII Intact, Normal Cognition, No Motor/ Sensory Deficits, Other (hand tremors) Psychiatric: Normal Affect, Normal Mood Skin Exam: Warm, Dry, Intact, Normal Color, No Rash Lymphatic: No Adenopathy EKG INTERPRETATION EKG Date: 02/11/18 Time: 15:30 Rhythm: NSR Rate (Beats/Min): 87 [place]: Normal P-Wave: Present QRS: Normal ST-T: Normal QT: Normal Comparison: No Change (from 02/11, LVH present) Course - Vital Signs Text/Narrative:: Feeling better after tx in the ER, sx's not all gone. Does not want to go to detox. Last Recorded V/S: Last Vital Signs Temp 36.4 C 04/14/18 15:21 Pulse 98 02/11/18 15:21 Resp 22 H 02/11/18 15:21 BP 137/92 H 02/11/18 15:21 Pulse Ox 99 02/11/18 15:21 - Orders/Labs/Meds Orders: Active Orders 24 hr Category Date Time Status Cardiac Monitoring [RC] .As Directed Care 02/11/18 15:39 Active EKG Documentation Completion [RC] ASDIRECTED Care 02/11/18 15:39 Active MVI, Adult with Vitamin K [Infuvite Adult] 10 ml Med 02/11/18 16:00 Active Thiamine [Vitamin B-1] 100 mg Folic Acid 1 mg Magnesium Sulfate [Magnesium Sulfate 50%] 3 gm Sodium Chloride 0.9% [Normal Saline] 1,000 ml IV ASDIRECTED EKG 12 Lead [EK] Routine Ther 02/11/18 15:39 Ordered Medication Orders Multivitamins/Minerals 10 ml/Thiamine HCl 100 mg/ Folic Acid 1 mg/ Magnesium Sulfate 3 gm/ Sodium Chloride 1,017.2 mls @ 1,000 mls/hr IV ASDIRECTED MILES Last Admin: 02/11/18 16:40 Dose: 1,000 mls/hr Labs: Laboratory Tests 02/11/18 02/11/18 Range/Units 15:48 15:48 WBC 4.2 L (4.5-11.0) K/uL RBC 4.75 (4.30-5.90) M/uL Hgb 14.7 (12.0-15.0) g/dL Hct 43.3 (40.0-54.0) % MCV 91 (80-98) fL MCH 31 (27-31) pg MCHC 34 (32-36) % Plt Count 134 L (150-400) K/uL Sodium 139 L (140-148) mmol/L Potassium 3.6 (3.6-5.2) mmol/L Chloride 96 L (100-108) mmol/L Carbon Dioxide 30 (21-32) mmol/L Anion Gap 16.6 H (5.0-14.0) mmol/L BUN 9 D (7-18) mg/dL Creatinine 0.9 (0.8-1.3) mg/dL Est Cr Clr Drug Dosing 92.06 mL/min Estimated GFR (MDRD) > 60 (>60) Glucose 88 (74-106) mg/dL Calcium 9.3 (8.5-10.1) mg/dL Troponin I < 0.017 (0.000-0.056) ng/mL Meds: Medications Generic Name Dose Route Start Last Admin Trade Name Freq PRN Reason Stop Dose Admin Multivitamins/Minerals 10 ml/ 1,017.2 mls @ 1,000 mls/hr 02/11/18 16:00 02/11 16:40 Thiamine HCl 100 mg/ Folic IV 1,000 mls/hr Acid 1 mg/ Magnesium Sulfate 3 ASDIRECTED MILES Administration gm/ Sodium Chloride Discontinued Medications Generic Name Dose Route Start Last Admin Trade Name Freq PRN Reason Stop Dose Admin Al Hydroxide/Mg Hydroxide 30 ml 02/11/18 15:48 02/11/18 16:09 Mag-Al Plus PO 02/11/18 15:49 30 ml ONETIME ONE Administration Lorazepam 1 mg 02/11/18 15:46 02/11/18 16:09 Ativan PO 02/11/18 15:47 1 mg ONETIME ONE Administration Lorazepam 1 mg 02/11/18 16:54 02/11/18 17:24 Ativan PO 02/11/18 16:55 1 mg ONETIME ONE Administration Metoclopramide HCl 10 mg 02/11/18 15:46 02/11/18 16:41 Reglan IVPUSH 02/11/18 15:47 10 mg ONETIME ONE Administration Thiamine HCl 100 mg 02/11/18 15:47 02/11/18 16:09 Vitamin B-1 PO 02/11/18 15:48 100 mg ONETIME ONE Administration Departure - Departure Time of Disposition: 17:50 Disposition: Home, Self-Care 01 Condition: Fair Clinical Impression: Atypical chest pain, Mild dehydration Alcohol withdrawal Qualifiers: Complication of substance-induced condition: uncomplicated Qualified Code(s): F10.230 - Alcohol dependence with withdrawal, uncomplicated Referrals: Aj Cox MD [Primary Care Provider] - Forms: ED Department Discharge - My Orders Last 24 Hours: My Active Orders 02/11/18 15:39 Cardiac Monitoring [RC] .As Directed EKG Documentation Completion [RC] ASDIRECTED EKG 12 Lead [EK] Routine 02/11/18 16:00 MVI, Adult with Vitamin K [Infuvite Adult] 10 ml Thiamine [Vitamin B-1] 100 mg Folic Acid 1 mg Magnesium Sulfate [Magnesium Sulfate 50%] 3 gm Sodium Chloride 0.9% [Normal Saline] 1,000 ml IV ASDIRECTED - Assessment/Plan Last 24 Hours: My Active Orders 02/11/18 15:39 Cardiac Monitoring [RC] .As Directed EKG Documentation Completion [RC] ASDIRECTED EKG 12 Lead [EK] Routine 02/11/18 16:00 MVI, Adult with Vitamin K [Infuvite Adult] 10 ml Thiamine [Vitamin B-1] 100 mg Folic Acid 1 mg Magnesium Sulfate [Magnesium Sulfate 50%] 3 gm Sodium Chloride 0.9% [Normal Saline] 1,000 ml IV ASDIRECTED
[2018-02-11] MEDS ORDERED: LORazepam 1 MG Tab PO ONE ×2 (15:46→16:54)
[2018-02-11] MEDS ORDERED: Metoclopramide 10 MG/2 ML SDV IVPUSH ONE (15:46)
[2018-02-11] MEDS ORDERED: Thiamine 100 MG Tab PO ONE (15:47)
[2018-02-11] MEDS ORDERED: Aluminum Hydroxide/Magnesium Hydroxide/Simethicone Susp 30 ML Cup PO ONE (15:48)
[2018-02-11] MEDS ORDERED: MVI, Adult with Vitamin K 10 ML, Thiamine 100 MG, Folic Acid 1 MG, Magnesium Sulfate 3 ... IV SCH ×5 (16:00)
[2018-02-11 17:51] VITALS: BP 129/90
== END 2018-02-11 17:53 | disposition home or self-care (01) ==
LOC: JP.ED 14:48
DX: R07.89 Other chest pain (principal); E86.0 Dehydration; F10.230 Alcohol dependence with withdrawal, uncomplicated; K21.9 Gastro-esophageal reflux disease without esophagitis; F41.9 Anxiety disorder, unspecified; F32.9 Major depressive disorder, single episode, unspecified; Z88.1 Allergy status to other antibiotic agents; Z88.5 Allergy status to narcotic agent
CPT/HCPCS: 36415; 80048; 84484; 85027; 93005; 96374; 99285; A9270; J2765; J3411; J3475; J7040; J3490

== ENCOUNTER 2018-02-24 13:53 | Emergency (ER) | payer BC ==
[2018-02-24 14:23] VITALS: BP 141/96
--- NOTE | 2018-02-24 15:23 | EDM.PDOC ---
ED HPI GENERAL MEDICAL PROBLEM - General Chief Complaint: Drug or Alcohol Abuse Stated Complaint: RIGHT SIDE PAIN Time Seen by Provider: 02/24/18 15:16 Source of Information: Reports: Patient, RN Notes Reviewed History Limitations: Reports: No Limitations - History of Present Illness INITIAL COMMENTS - FREE TEXT/NARRATIVE: 42-year-old gentleman presents to the emergency department today with complaint of abdominal pain, he admits to consuming alcohol usually case of beer per day however he has been detoxing at home last drank alcohol 2 weeks ago. He states he developed belly pain over the last couple of days is predominantly in the right upper quadrant does get waves of nausea and anxiety, still passing gas Right Upper Abdomen Pain Score (Numeric/FACES): 9 - Related Data Allergies Allergy/AdvReac Type Severity Reaction Status Date / Time amoxicillin [Amoxicillin] Allergy Cannot Verified 02/24/18 14:17 Remember codeine Allergy Cannot Verified 02/24/18 14:17 Remember erythromycin lactobionate Allergy Cannot Verified 02/24/18 14:17 [From Erythrocin] Remember Home Meds: Home Meds NK [No Known Home Meds] 02/24/18 [History] Past Medical History Gastrointestinal History: Reports: GERD Musculoskeletal History: Reports: Fracture Neurological History: Reports: Seizure Psychiatric History: Reports: Addiction, Anxiety, Depression Endocrine/Metabolic History: Reports: Other (See Below) Other Endocrine/Metabolic History: hyperglycemia - Infectious Disease History Infectious Disease History: Reports: Chicken Pox - Past Surgical History GI Surgical History: Reports: EGD Social & Family History - Tobacco Use Smoking Status *Q: Current Every Day Smoker Years of Tobacco use: 17 Packs/Tins Daily: 1 Used Tobacco, but Quit: No Month/Year Tobacco Last Used: May Second Hand Smoke Exposure: Yes - Caffeine Use Caffeine Use: Reports: Soda - Alcohol Use Days Per Week of Alcohol Use: 0 Number of Drinks Per Day: 12 Total Drinks Per Week: 0 - Recreational Drug Use Recreational Drug Use: No ED ROS GENERAL - Review of Systems Review Of Systems: See Below Constitutional: Reports: Chills. Denies: Fever HEENT: Reports: No Symptoms Respiratory: Reports: No Symptoms Cardiovascular: Reports: No Symptoms GI/Abdominal: Reports: Abdominal Pain, Flatus, Nausea. Denies: Vomiting : Reports: No Symptoms Musculoskeletal: Reports: No Symptoms Skin: Reports: No Symptoms Neurological: Reports: No Symptoms ED EXAM, GI/ABD - Physical Exam Exam: See Below Text/Narrative:: General: Male, not in any distress, alert and oriented x3 HEENT: head is atraumatic normocephalic, eyes pupils equal round reactive to light, sclera clear no conjunctivitis appreciated. Ears tympanic membranes clear and chaudhary landmarks and light reflex are present bilaterally canals are clear. Nose no septal deviation, nares are clear, no blood present. Mouth mucosa is moist and pink no erythema or exudate noted in soft palate, tongue is midline uvula is midline, dentition is intact. Neck: Supple no thyromegaly no tracheal deviation. Nodes: Cervical nodes subclavicular nodes nontender no palpable lymphadenopathy noted. Lungs: clear to auscultation bilaterally with symmetrical respirations, no adventitious noise appreciated. CV: Regular rate and rhythm S1 and S2 appreciated no murmurs rubs or gallops noted. Abdomen: Soft, mild tenderness right upper quadrant, no palpable masses or organomegaly appreciated, no distention no guarding bowel sounds are present, . Neuro: Cranial nerves II through XII grossly intact Skin: Warm and dry, intact Extremities: No lower extremity edema appreciated, Course - Vital Signs Last Recorded V/S: Last Vital Signs Temp 97.2 F 02/24/18 14:27 Pulse 94 02/24/18 14:27 Resp 18 02/24/18 14:27 BP 141/96 H 02/24/18 14:27 Pulse Ox 99 02/24/18 14:27 - Orders/Labs/Meds Orders: Active Orders 24 hr Category Date Time Status DRUG SCREEN, URINE [URCHEM] Urgent Lab 02/24/18 15:35 Ordered UA W/MICROSCOPIC [URIN] Urgent Lab 02/24/18 15:35 Ordered Labs: Laboratory Tests 02/24/18 02/24/18 02/24/18 Range/Units 15:35 15:35 15:35 WBC 5.0 (4.5-11.0) K/uL RBC 4.73 (4.30-5.90) M/uL Hgb 15.3 H (12.0-15.0) g/dL Hct 44.3 (40.0-54.0) % MCV 94 (80-98) fL MCH 32 H (27-31) pg MCHC 35 (32-36) % Plt Count 114 L (150-400) K/uL Neut % (Auto) 55 (36-66) % Lymph % (Auto) 29 (24-44) % [place] % (Auto) 13 H (2-6) % Eos % (Auto) 2 (2-4) % Baso % (Auto) 1 (0-1) % PT (9.5-12.0) sec INR (0.80-1.20) Sodium (140-148) mmol/L Potassium (3.6-5.2) mmol/L Chloride (100-108) mmol/L Carbon Dioxide (21-32) mmol/L Anion Gap (5.0-14.0) mmol/L BUN (7-18) mg/dL Creatinine (0.8-1.3) mg/dL Est Cr Clr Drug Dosing mL/min Estimated GFR (MDRD) (>60) Glucose (74-106) mg/dL Lactic Acid (0.4-2.0) mmol/L Calcium (8.5-10.1) mg/dL Total Bilirubin (0.2-1.0) mg/dL AST (15-37) U/L ALT (12-78) U/L Alkaline Phosphatase (46-116) U/L Total Protein (6.4-8.2) g/dL Albumin (3.4-5.0) g/dL Globulin (2.3-3.5) g/dL Albumin/Globulin Ratio (1.2-2.2) Lipase (73-393) U/L Urine Color Yellow Urine Appearance Clear Urine pH 8.0 (4.5-8.0) Ur Specific [place] 1.015 (1.008-1.030) Urine Protein Negative (NEGATIVE) mg/dL Urine Glucose (UA) Normal (NEGATIVE) mg/dL Urine Ketones 15 H (NEGATIVE) mg/dL Urine Occult Blood Negative (NEGATIVE) Urine Nitrite Negative (NEGAITVE) Urine Bilirubin Negative (NEGATIVE) Urine Urobilinogen Normal (NORMAL) mg/dL Ur Leukocyte Esterase Negative (NEGATIVE) Urine RBC Not seen (0-5) Urine WBC Not seen (0-5) Ur Epithelial Cells Rare Amorphous Sediment Not seen Urine Bacteria Rare Urine Mucus Not seen Urine Opiates Screen Negative (NEGATIVE) Ur Oxycodone Screen Negative (NEGATIVE) Urine Methadone Screen Negative (NEGATIVE) Ur Propoxyphene Screen Negative (NEGATIVE) Ur Barbiturates Screen Negative (NEGATIVE) Ur Tricyclics Screen Negative (NEGATIVE) Ur Phencyclidine Scrn Negative (NEGATIVE) Ur Amphetamine Screen Negative (NEGATIVE) U Methamphetamines Scrn Negative (NEGATIVE) Urine MDMA Screen Negative (NEGATIVE) U Benzodiazepines Scrn Negative (NEGATIVE) U Cocaine Metab Screen Negative (NEGATIVE) U Marijuana (THC) Screen Negative (NEGATIVE) Ethyl Alcohol mg/dL 02/24/18 02/24/18 02/24/18 Range/Units 15:35 15:35 15:35 WBC (4.5-11.0) K/uL RBC (4.30-5.90) M/uL Hgb (12.0-15.0) g/dL Hct (40.0-54.0) % MCV (80-98) fL MCH (27-31) pg MCHC (32-36) % Plt Count (150-400) K/uL Neut % (Auto) (36-66) % Lymph % (Auto) (24-44) % [place] % (Auto) (2-6) % Eos % (Auto) (2-4) % Baso % (Auto) (0-1) % PT 10.3 (9.5-12.0) sec INR 0.96 (0.80-1.20) Sodium 139 L (140-148) mmol/L Potassium 3.8 (3.6-5.2) mmol/L Chloride 99 L (100-108) mmol/L Carbon Dioxide 29 (21-32) mmol/L Anion Gap 14.8 H (5.0-14.0) mmol/L BUN 9 (7-18) mg/dL Creatinine 0.9 (0.8-1.3) mg/dL Est Cr Clr Drug Dosing 92.06 mL/min Estimated GFR (MDRD) > 60 (>60) Glucose 94 (74-106) mg/dL Lactic Acid 1.1 (0.4-2.0) mmol/L Calcium 9.4 (8.5-10.1) mg/dL Total Bilirubin 1.4 H (0.2-1.0) mg/dL AST 104 H (15-37) U/L ALT 169 H (12-78) U/L Alkaline Phosphatase 90 (46-116) U/L Total Protein 7.7 (6.4-8.2) g/dL Albumin 4.6 (3.4-5.0) g/dL Globulin 3.1 (2.3-3.5) g/dL Albumin/Globulin Ratio 1.5 (1.2-2.2) Lipase 307 (73-393) U/L Urine Color Urine Appearance Urine pH (4.5-8.0) Ur Specific [place] (1.008-1.030) Urine Protein (NEGATIVE) mg/dL Urine Glucose (UA) (NEGATIVE) mg/dL Urine Ketones (NEGATIVE) mg/dL Urine Occult Blood (NEGATIVE) Urine Nitrite (NEGAITVE) Urine Bilirubin (NEGATIVE) Urine Urobilinogen (NORMAL) mg/dL Ur Leukocyte Esterase (NEGATIVE) Urine RBC (0-5) Urine WBC (0-5) Ur Epithelial Cells Amorphous Sediment Urine Bacteria Urine Mucus Urine Opiates Screen (NEGATIVE) Ur Oxycodone Screen (NEGATIVE) Urine Methadone Screen (NEGATIVE) Ur Propoxyphene Screen (NEGATIVE) Ur Barbiturates Screen (NEGATIVE) Ur Tricyclics Screen (NEGATIVE) Ur Phencyclidine Scrn (NEGATIVE) Ur Amphetamine Screen (NEGATIVE) U Methamphetamines Scrn (NEGATIVE) Urine MDMA Screen (NEGATIVE) U Benzodiazepines Scrn (NEGATIVE) U Cocaine Metab Screen (NEGATIVE) U Marijuana (THC) Screen (NEGATIVE) Ethyl Alcohol mg/dL 02/24/18 Range/Units 15:35 WBC (4.5-11.0) K/uL RBC (4.30-5.90) M/uL Hgb (12.0-15.0) g/dL Hct (40.0-54.0) % MCV (80-98) fL MCH (27-31) pg MCHC (32-36) % Plt Count (150-400) K/uL Neut % (Auto) (36-66) % Lymph % (Auto) (24-44) % [place] % (Auto) (2-6) % Eos % (Auto) (2-4) % Baso % (Auto) (0-1) % PT (9.5-12.0) sec INR (0.80-1.20) Sodium (140-148) mmol/L Potassium (3.6-5.2) mmol/L Chloride (100-108) mmol/L Carbon Dioxide (21-32) mmol/L Anion Gap (5.0-14.0) mmol/L BUN (7-18) mg/dL Creatinine (0.8-1.3) mg/dL Est Cr Clr Drug Dosing mL/min Estimated GFR (MDRD) (>60) Glucose (74-106) mg/dL Lactic Acid (0.4-2.0) mmol/L Calcium (8.5-10.1) mg/dL Total Bilirubin (0.2-1.0) mg/dL AST (15-37) U/L ALT (12-78) U/L Alkaline Phosphatase (46-116) U/L Total Protein (6.4-8.2) g/dL Albumin (3.4-5.0) g/dL Globulin (2.3-3.5) g/dL Albumin/Globulin Ratio (1.2-2.2) Lipase (73-393) U/L Urine Color Urine Appearance Urine pH (4.5-8.0) Ur Specific [place] (1.008-1.030) Urine Protein (NEGATIVE) mg/dL Urine Glucose (UA) (NEGATIVE) mg/dL Urine Ketones (NEGATIVE) mg/dL Urine Occult Blood (NEGATIVE) Urine Nitrite (NEGAITVE) Urine Bilirubin (NEGATIVE) Urine Urobilinogen (NORMAL) mg/dL Ur Leukocyte Esterase (NEGATIVE) Urine RBC (0-5) Urine WBC (0-5) Ur Epithelial Cells Amorphous Sediment Urine Bacteria Urine Mucus Urine Opiates Screen (NEGATIVE) Ur Oxycodone Screen (NEGATIVE) Urine Methadone Screen (NEGATIVE) Ur Propoxyphene Screen (NEGATIVE) Ur Barbiturates Screen (NEGATIVE) Ur Tricyclics Screen (NEGATIVE) Ur Phencyclidine Scrn (NEGATIVE) Ur Amphetamine Screen (NEGATIVE) U Methamphetamines Scrn (NEGATIVE) Urine MDMA Screen (NEGATIVE) U Benzodiazepines Scrn (NEGATIVE) U Cocaine Metab Screen (NEGATIVE) U Marijuana (THC) Screen (NEGATIVE) Ethyl Alcohol < 3 mg/dL Meds: Medications Discontinued Medications Generic Name Dose Route Start Last Admin Trade Name Freq PRN Reason Stop Dose Admin Ibuprofen 600 mg 02/24/18 16:16 02/24/18 16:22 Motrin PO 02/24/18 16:17 600 mg ONETIME ONE Administration Lorazepam 1 mg 02/24/18 16:11 02/24/18 16:15 Ativan PO 02/24/18 16:12 1 mg ONETIME ONE Administration Departure - Departure Time of Disposition: 16:29 Disposition: Home, Self-Care 01 Condition: Fair Clinical Impression: Alcohol withdrawal syndrome Qualifiers: Complication of substance-induced condition: uncomplicated Qualified Code(s): F10.230 - Alcohol dependence with withdrawal, uncomplicated - Discharge Information Referrals: Aj Cox MD [Primary Care Provider] - Forms: ED Department Discharge Additional Instructions: Continue to use ibuprofen as needed for pain control, use Ativan as needed for anxiety symptoms, Please followup with your primary care provider in 3-5 days if not better, please call return to the emergency department with worsening of symptoms. - My Orders Last 24 Hours: My Active Orders 02/24/18 15:35 DRUG SCREEN, URINE [URCHEM] Urgent UA W/MICROSCOPIC [URIN] Urgent - Assessment/Plan Last 24 Hours: My Active Orders 02/24/18 15:35 DRUG SCREEN, URINE [URCHEM] Urgent UA W/MICROSCOPIC [URIN] Urgent Plan: Assessment Acuity = acute Site and laterality = alcohol withdrawal with right upper quadrant abdominal pain Etiology = probably related to the alcohol Manifestations = none Location of injury = Home Lab values = CBC within normal limits INR 0.96 total bilirubin elevated 1.1 consistent hyperbilirubinemia AST elevated 104 ALTs elevated 169 consistent with elevated liver enzymes lipase normal at 307 urinalysis unremarkable, urine drug screen was negative and EtOH was also negative Plan I did review lab work with him he had good relief with Ativan provided prescription is going to return for Ativan 1 mg by mouth 3 times a day when necessary total #10 about further investigation such as a CT scan of the abdomen but he declined at this time he is to follow-up with primary care next week This note was dictated using [email or web address] voice recognition software please call with any questions on syntax or [email or web address].
[2018-02-24] MEDS ORDERED: LORazepam 1 MG Tab PO ONE (16:11)
[2018-02-24] MEDS ORDERED: Ibuprofen 600 MG Tab PO ONE (16:16)
== END 2018-02-24 16:37 | disposition home or self-care (01) ==
LOC: JP.ED 13:53
DX: F10.230 Alcohol dependence with withdrawal, uncomplicated (principal); R10.11 Right upper quadrant pain; F17.210 Nicotine dependence, cigarettes, uncomplicated; Z88.1 Allergy status to other antibiotic agents; Z88.5 Allergy status to narcotic agent
CPT/HCPCS: 36415; 80053; 80305; 81001; 83605; 83690; 85025; 85610; 99284; A9270; G0480

== ENCOUNTER 2019-04-09 15:52 | Emergency (ER) | payer BC ==
--- NOTE | 2019-04-09 16:40 | EDM.PDOC ---
ED HPI GENERAL MEDICAL PROBLEM - General Chief Complaint: Respiratory Problem Stated Complaint: CHEST PAINS Time Seen by Provider: 04/09/19 16:35 Source of Information: Reports: Patient, Old Records, RN History Limitations: Reports: No Limitations - History of Present Illness INITIAL COMMENTS - FREE TEXT/NARRATIVE: 44 yo male here with worsening of chest pains he's had since December of this year plus about 5 days of waxing and waning vertigo associated with nausea/ vomiting. His primary was not available to he came to the ER. No current self treatment. Has been seen for this several times including by his primary. Previous blood work and EKG's have been unremarkable. Onset: Other (12/19) Duration: Week(s):, Waxing/Waning Location: Reports: Head (vertigo), Chest (pleuritic pain) Quality: Reports: Sharp (chest pain) Severity: Moderate Improves with: Reports: Rest Worsens with: Reports: Other (deep breathing) Context: Reports: Other (see HPI) Associated Symptoms: Reports: Chest Pain (pleuritic over the sternal area.), Cough (mild), Nausea/Vomiting. Denies: Diaphoresis, Fever/Chills, Shortness of Breath Treatments HEREDITARY CANCER PROGRAM COORDINATOR: Reports: Other (see below) (none) anterior chest Pain Score (Numeric/FACES): 9 - Related Data Allergies Allergy/AdvReac Type Severity Reaction Status Date / Time amoxicillin [Amoxicillin] Allergy Cannot Verified 04/09/19 16:14 Remember codeine Allergy Cannot Verified 04/09/19 16:14 Remember erythromycin lactobionate Allergy Cannot Verified 04/09/19 16:14 [From Erythrocin] Remember Home Meds: Home Meds Meclizine [Antivert] 25 mg PO Q6H PRN #20 tab 04/09/19 [Rx] Past Medical History Gastrointestinal History: Reports: GERD Musculoskeletal History: Reports: Fracture Neurological History: Reports: Seizure Psychiatric History: Reports: Addiction, Anxiety, Depression Other Psychiatric History: Past hx of alcholism. Drinks now in moderation. Endocrine/Metabolic History: Reports: Other (See Below) Other Endocrine/Metabolic History: hyperglycemia - Infectious Disease History Infectious Disease History: Reports: Chicken Pox - Past Surgical History GI Surgical History: Reports: EGD Social & Family History - Tobacco Use Smoking Status *Q: Current Every Day Smoker Years of Tobacco use: 30 Packs/Tins Daily: 0.1 Used Tobacco, but Quit: No Second Hand Smoke Exposure: No - Caffeine Use Caffeine Use: Reports: Coffee - Alcohol Use Days Per Week of Alcohol Use: 2 Number of Drinks Per Day: 6 Total Drinks Per Week: 12 - Recreational Drug Use Recreational Drug Use: No ED ROS GENERAL - Review of Systems Review Of Systems: See Below Constitutional: Reports: No Symptoms HEENT: Reports: No Symptoms Respiratory: Reports: Pleuritic Chest Pain, Cough. Denies: Shortness of Breath , Sputum, Hemoptysis Cardiovascular: Reports: No Symptoms Endocrine: Reports: No Symptoms GI/Abdominal: Reports: No Symptoms : Reports: No Symptoms Musculoskeletal: Reports: No Symptoms Skin: Reports: No Symptoms Neurological: Reports: No Symptoms Psychiatric: Reports: No Symptoms ED EXAM, GENERAL - Physical Exam Exam: See Below Exam Limited By: No Limitations General Appearance: Alert, WD/WN, No Apparent Distress Eye Exam: Bilateral Eye: Normal Inspection, Nystagmus (on R-beltre gaze) Ears: Normal External Exam, Normal Canal, Hearing Grossly Normal, Normal TMs Ear Exam: Bilateral Ear: Auricle Normal, Canal Normal, TM normal Nose: Normal Inspection, No Blood Throat/Mouth: Normal Inspection, Normal Lips, Normal Oropharynx, Normal Voice, No Airway Compromise Head: Atraumatic, Normocephalic Neck: Normal Inspection Respiratory/Chest: No Respiratory Distress, Lungs Clear, Normal Breath Sounds, No Accessory Muscle Use, Chest Non-Tender Cardiovascular: Regular Rate, Rhythm, No Edema GI/Abdominal: Normal Bowel Sounds, Soft, Non-Tender, No Distention Back Exam: Normal Inspection. No: CVA Tenderness (R), CVA Tenderness (L) Extremities: Normal Inspection, Normal Range of Motion, Non-Tender, No Pedal Edema Neurological: Alert, Oriented, CN II-XII Intact, Normal Cognition, No Motor/ Sensory Deficits Psychiatric: Normal Affect, Normal Mood Skin Exam: Warm, Dry, Intact, Normal Color, No Rash EKG INTERPRETATION EKG Date: 04/09/19 Time: 16:15 Rhythm: NSR Rate (Beats/Min): 76 [place]: Normal P-Wave: Present QRS: Normal ST-T: Normal QT: Normal Comparison: No Change EKG Interpretation Comments: LVH Course - Vital Signs Last Recorded V/S: Last Vital Signs Temp 36.9 C 04/09/19 16:21 Pulse 70 04/09/19 16:55 Resp 18 04/09/19 16:55 BP 117/92 H 04/09/19 16:55 Pulse Ox 99 04/09/19 16:55 - Orders/Labs/Meds Orders: Active Orders 24 hr Category Date Time Status Cardiac Monitoring [RC] .As Directed Care 04/09/19 15:53 Active EKG Documentation Completion [RC] ASDIRECTED Care 04/09/19 15:53 Active EKG 12 Lead [EK] Routine Ther 04/09/19 15:53 Ordered Meds: Medications Discontinued Medications Generic Name Dose Route Start Last Admin Trade Name Freq PRN Reason Stop Dose Admin Ketorolac Tromethamine 30 mg 04/09/19 16:44 04/09/19 17:07 Toradol IM 04/09/19 16:45 30 mg ONETIME ONE Administration Meclizine HCl 25 mg 04/09/19 16:44 04/09/19 17:04 Antivert PO 04/09/19 16:45 25 mg ONETIME ONE Administration Departure - Departure Time of Disposition: 17:30 Disposition: Home, Self-Care 01 Condition: Fair Clinical Impression: Vertigo, Pleuritic chest pain - Discharge Information *PRESCRIPTION DRUG MONITORING PROGRAM REVIEWED*: No *COPY OF PRESCRIPTION DRUG MONITORING REPORT IN PATIENT [place]: No Prescriptions: Meclizine [Antivert] 25 mg PO Q6H PRN #20 tab PRN Reason: Dizziness Instructions: Vertigo Referrals: Aj Cox MD [Primary Care Provider] - Forms: ED Department Discharge Additional Instructions: Take meclizine 25 mg every 6 hrs as needed for vertigo and nausea. Take ibuprofen 600 mg every 6 hrs with food starting after 10 pm tonight. Take acetaminophen 650 mg every 4 hrs for added relief. No smoking. See Dr. Cox for recheck later this week. - My Orders Last 24 Hours: My Active Orders 04/09/19 15:53 Cardiac Monitoring [RC] .As Directed EKG Documentation Completion [RC] ASDIRECTED EKG 12 Lead [EK] Routine - Assessment/Plan Last 24 Hours: My Active Orders 04/09/19 15:53 Cardiac Monitoring [RC] .As Directed EKG Documentation Completion [RC] ASDIRECTED EKG 12 Lead [EK] Routine
[2019-04-09] MEDS ORDERED: Ketorolac 30 MG/ML SDV IM ONE (16:44)
[2019-04-09] MEDS ORDERED: Meclizine 25 MG Tab PO ONE (16:44)
[2019-04-09 16:56] VITALS: BP 117/92
== END 2019-04-09 17:30 | disposition home or self-care (01) ==
LOC: JP.ED 15:52
DX: R07.81 Pleurodynia (principal); R42 Dizziness and giddiness; F17.210 Nicotine dependence, cigarettes, uncomplicated; Z88.1 Allergy status to other antibiotic agents; Z88.5 Allergy status to narcotic agent
CPT/HCPCS: 93005; 96372; 99284; A9270; J1885

== ENCOUNTER 2019-11-02 15:05 | Emergency (ER) | payer BC ==
[2019-11-02 15:50] VITALS: BP 132/90; PULSE 116
--- NOTE | 2019-11-02 16:09 | EDM.PDOC ---
ED HPI GENERAL MEDICAL PROBLEM - General Chief Complaint: Neurological Problem Stated Complaint: SEIZURE Time Seen by Provider: 11/02/19 16:03 Source of Information: Reports: Patient, Old Records History Limitations: Reports: No Limitations - History of Present Illness INITIAL COMMENTS - FREE TEXT/NARRATIVE: 44 yo male with a pHx of seizures presents several hrs after a seizure this morning at the [facility]. Refused EMS transport at that time. Did incur a R sided facial abrasion during the seizure. His last seizure was about 6 yrs ago. Is not on any meds currently for seizures. Denies ETOH use. Feels stiff all over since the seizure today. Has a pHx of ETOH abuse. States was drinking heavily, but none since 10/24/19. Was not having any sign of withdrawal, per Maldonado, before today's seizure. Onset: Today Onset Date: 11/02/19 Duration: Minutes:, Resolved Prior to Arrival Location: Reports: Generalized Quality: Reports: Other (stiff all over. ) Severity: Moderate Improves with: Reports: Other (time) Worsens with: Reports: Other (uncertain) Context: Reports: Other (see HPI) Associated Symptoms: Reports: Seizure, Other (R facial abrasion) Treatments FRICKERTRON CHECKER: Reports: Other (see below) (none) Abdomen Pain Score (Numeric/FACES): 6 - Related Data Allergies Allergy/AdvReac Type Severity Reaction Status Date / Time codeine Allergy Intermediate Nausea Verified 11/02/19 15:49 erythromycin lactobionate Allergy Intermediate Cannot Verified 11/02/19 15:49 [From Erythrocin] Remember amoxicillin [Amoxicillin] Allergy Mild Nausea Verified 11/02/19 15:49 Home Meds: Home Meds levETIRAcetam [Keppra] 500 mg PO BID #60 tab 11/02/19 [Rx] Past Medical History Gastrointestinal History: Reports: GERD Genitourinary History: Reports: STD Musculoskeletal History: Reports: Fracture Neurological History: Reports: Seizure Psychiatric History: Reports: Addiction, Anxiety, Depression Other Psychiatric History: Past hx of alcholism. Drinks now in moderation. Endocrine/Metabolic History: Reports: Other (See Below) Other Endocrine/Metabolic History: hyperglycemia - Infectious Disease History Infectious Disease History: Reports: Chicken Pox - Past Surgical History GI Surgical History: Reports: EGD Other Musculoskeletal Surgeries/Procedures:: fx ankle, left wrist, clavicle Social & Family History - Tobacco Use Smoking Status *Q: Current Every Day Smoker Years of Tobacco use: 25 Packs/Tins Daily: 0.5 - Caffeine Use Caffeine Use: Reports: None - Alcohol Use Days Per Week of Alcohol Use: 4 Number of Drinks Per Day: 12 Total Drinks Per Week: 48 Date of Last Drink: 10/24/19 Time of Last Drink: 21:00 - Recreational Drug Use Recreational Drug Use: No ED ROS GENERAL - Review of Systems Review Of Systems: See Below Constitutional: Reports: No Symptoms HEENT: Reports: No Symptoms, Other (no tongue injury) Respiratory: Reports: No Symptoms Cardiovascular: Reports: No Symptoms Endocrine: Reports: No Symptoms GI/Abdominal: Reports: No Symptoms : Reports: No Symptoms Musculoskeletal: Reports: No Symptoms Skin: Reports: Wound (abrasions R side of face.) Neurological: Reports: Seizure Psychiatric: Reports: No Symptoms - Physical Exam Exam: See Below Exam Limited By: No Limitations General Appearance: Alert, WD/WN, No Apparent Distress Eye Exam: Bilateral Eye: Normal Inspection, PERRL Ears: Normal External Exam, Normal Canal, Hearing Grossly Normal, Normal TMs Nose: Normal Inspection, No Blood Throat/Mouth: Normal Inspection, Normal Lips, Normal Oropharynx, Normal Voice, No Airway Compromise, Other (tongue uninjured.) Head Exam: Atraumatic, Normocephalic Neck: Normal Inspection, Supple, Non-Tender, Full Range of Motion. No: Lymphadenopathy (R), Lymphadenopathy (L) Respiratory/Chest: No Respiratory Distress, Lungs Clear, Normal Breath Sounds, No Accessory Muscle Use Cardiovascular: Regular Rate, Rhythm, No Edema GI/Abdominal: Normal Bowel Sounds, Soft, Non-Tender, No Distention (Male) Exam: Normal Inspection Neuro Exam (Abbreviated): Alert, Oriented, CN II-XII Intact, Normal Cognition, No Motor/Sensory Deficits Back Exam: Normal Inspection Extremities: Normal Inspection, Normal Range of Motion, Non-Tender, No Pedal Edema Psychiatric: Normal Affect, Normal Mood Skin Exam: Warm, Dry, Intact, Normal Color, No Rash Course - Vital Signs Last Recorded V/S: Last Vital Signs Temp 36.9 C 11/02/19 16:03 Pulse 116 H 11/02/19 16:03 Resp 16 11/02/19 16:03 BP 132/90 11/02/19 16:03 Pulse Ox 99 11/02/19 16:03 - Orders/Labs/Meds Orders: Active Orders 24 hr Category Date Time Status Vaccines to be Administered [RC] PER UNIT ROUTINE Care 11/02/19 16:54 Active Head wo Cont [CT] Stat Exams 11/02/19 16:54 Taken Labs: Laboratory Tests 11/02/19 11/02/19 11/02/19 Range/Units 16:17 16:17 16:17 WBC 6.5 (4.5-11.0) K/uL RBC 4.80 (4.30-5.90) M/uL Hgb 16.0 H (12.0-15.0) g/dL Hct 46.6 (40.0-54.0) % MCV 97 (80-98) fL MCH 33 H (27-31) pg MCHC 34 (32-36) % Plt Count 119 L (150-400) K/uL Sodium 135 L (140-148) mmol/L Potassium 3.2 L (3.6-5.2) mmol/L Chloride 96 L (100-108) mmol/L Carbon Dioxide 29 (21-32) mmol/L Anion Gap 13.2 (5.0-14.0) mmol/L BUN 8 (7-18) mg/dL Creatinine 0.9 (0.8-1.3) mg/dL Est Cr Clr Drug Dosing 93.53 mL/min Estimated GFR (MDRD) > 60 (>60) Glucose 104 (74-106) mg/dL Calcium 9.5 (8.5-10.1) mg/dL Magnesium (1.8-2.4) mg/dL Total Bilirubin 1.7 H (0.2-1.0) mg/dL AST 88 H (15-37) U/L ALT 106 H (12-78) U/L Alkaline Phosphatase 86 (46-116) U/L Total Protein 8.1 (6.4-8.2) g/dL Albumin 4.6 (3.4-5.0) g/dL Globulin 3.5 (2.3-3.5) g/dL Albumin/Globulin Ratio 1.3 (1.2-2.2) Ethyl Alcohol < 3 mg/dL 11/02/19 Range/Units 17:00 WBC (4.5-11.0) K/uL RBC (4.30-5.90) M/uL Hgb (12.0-15.0) g/dL Hct (40.0-54.0) % MCV (80-98) fL MCH (27-31) pg MCHC (32-36) % Plt Count (150-400) K/uL Sodium (140-148) mmol/L Potassium (3.6-5.2) mmol/L Chloride (100-108) mmol/L Carbon Dioxide (21-32) mmol/L Anion Gap (5.0-14.0) mmol/L BUN (7-18) mg/dL Creatinine (0.8-1.3) mg/dL Est Cr Clr Drug Dosing mL/min Estimated GFR (MDRD) (>60) Glucose (74-106) mg/dL Calcium (8.5-10.1) mg/dL Magnesium 2.4 (1.8-2.4) mg/dL Total Bilirubin (0.2-1.0) mg/dL AST (15-37) U/L ALT (12-78) U/L Alkaline Phosphatase (46-116) U/L Total Protein (6.4-8.2) g/dL Albumin (3.4-5.0) g/dL Globulin (2.3-3.5) g/dL Albumin/Globulin Ratio (1.2-2.2) Ethyl Alcohol mg/dL Meds: Medications Discontinued Medications Generic Name Dose Route Start Last Admin Trade Name Freq PRN Reason Stop Dose Admin Diphtheria/Tetanus/Acell Pertussis 0.5 ml 11/02/19 16:54 Adacel IM 11/02/19 16:55 .ONCE ONE Levetiracetam 1,000 mg 11/02/19 17:29 Keppra PO 11/02/19 17:30 NOW STA Potassium Chloride 40 meq 11/02/19 16:50 Potassium Chloride PO 11/02/19 16:51 ONETIME ONE - Radiology Interpretation Free Text/Narrative:: Head CT without contrast- CT Results Date: 11/02/19 Departure - Departure Time of Disposition: 17:55 Disposition: Home, Self-Care 01 Condition: Fair Clinical Impression: Hypokalemia Facial abrasion Qualifiers: Encounter type: initial encounter Qualified Code(s): S00.81XA - Abrasion of other part of head, initial encounter Alcoholic hepatitis Qualifiers: Ascites presence: without ascites Qualified Code(s): K70.10 - Alcoholic hepatitis without ascites - Discharge Information *PRESCRIPTION DRUG MONITORING PROGRAM REVIEWED*: No *COPY OF PRESCRIPTION DRUG MONITORING REPORT IN PATIENT [place]: No Instructions: Alcoholic Liver Disease, [id number], Hypokalemia, Seizure, Adult, [id number] Referrals: Aj Cox MD [Primary Care Provider] - Forms: ED Department Discharge Additional Instructions: Take Keppra every 12 hrs as needed. No driving. Eat a diet rich in potassium. F/ U with your doctor as soon as possible for recheck. No alcohol. See a neurologist as soon as you can. Return as needed. Sepsis Event Note - Focused Exam Vital Signs: Vital Signs Temp Pulse Resp BP Pulse Ox 11/02/19 16:03 36.9 C 116 H 16 132/90 99 11/02/19 15:38 36.9 C 116 H 18 132/90 99 Date Exam was Performed: 11/02/19 Time Exam was Performed: 17:30 - My Orders Last 24 Hours: My Active Orders 11/02/19 16:54 Vaccines to be Administered [RC] PER UNIT ROUTINE Head wo Cont [CT] Stat - Assessment/Plan Last 24 Hours: My Active Orders 11/02/19 16:54 Vaccines to be Administered [RC] PER UNIT ROUTINE Head wo Cont [CT] Stat
[2019-11-02] MEDS ORDERED: Potassium Chloride 10 MEQ Cap.ER PO ONE (16:50)
[2019-11-02] MEDS ORDERED: Diphtheria,Pertussis(Acell),Tetanus Vaccine 0.5 ML SDV IM ONE (16:54)
[2019-11-02] MEDS ORDERED: levETIRAcetam 500 MG/5 ML Solution ML 473 ml Bottle PO STA (17:29)
--- NOTE | 2019-11-02 17:42 | CRLCT ---
INDICATION: Seizure COMPARISON: None TECHNIQUE: CT examination of the head was performed as axial sections without intravenous contrast. Images were obtained from the vertex of the skull through the skull base. Please note that all CT scans at this facility use dose modulation, iterative reconstruction, and/or weight-based dosing when appropriate to reduce radiation dose to as low as reasonably achievable. FINDINGS: The brain shows no sign of mass lesion, mass effect, hemorrhage, or edema. There are involutional changes. There is [id number] cortical atrophy and there is minimal white matter disease. There is no hydrocephalus. The visualized portions of the orbits are normal in appearance. The osseous structures are normal in appearance with no sign of abnormality in the skull base or calvarium. IMPRESSION: Involutional changes. No acute appearing finding. Please note that all CT scans at this facility use dose modulation, iterative reconstruction, and/or weight-based dosing when appropriate to reduce radiation dose to as low as reasonably achievable. Dictated by Jass Buckley MD @ Nov 02 2019 5:38PM Signed by Dr. Jass Buckley @ Nov 02 2019 5:41PM
[2019-11-02] MEDS ORDERED: levETIRAcetam 250 MG Tab PO SCH (18:00)
== END 2019-11-02 18:20 | disposition home or self-care (01) ==
LOC: JP.ED 15:05
DX: S00.81XA Abrasion of other part of head, initial encounter (principal); K70.10 Alcoholic hepatitis without ascites; F41.9 Anxiety disorder, unspecified; F32.9 Major depressive disorder, single episode, unspecified; K21.9 Gastro-esophageal reflux disease without esophagitis; Z88.5 Allergy status to narcotic agent; Z23 Encounter for immunization; F17.210 Nicotine dependence, cigarettes, uncomplicated; Z88.1 Allergy status to other antibiotic agents; X58.XXXA Exposure to other specified factors, initial encounter
CPT/HCPCS: 36415; 70450; 80053; 80320; 83735; 85027; 90471; 90715; 99284; A9270; G0480

== ENCOUNTER 2025-02-12 10:37 | Inpatient (IN) | payer BC ==
[2025-02-12 10:53] LABS: BASOPHILS ABSOLUTE AUTO 0.11 K/uL (0.00-0.10); BASOPHILS PERCENT AUTO 1.5 % (0.1-1.3); EOSINOPHILS ABSOLUTE AUTO 0.26 K/uL (0.00-0.40); EOSINOPHILS PERCENT AUTO 3.6 % (0.0-5.4); HEMOGLOBIN 16.2 g/dL (12.9-16.9); IMMATURE GRAN ABSOLUTE AUTO 0.05 K/uL (0.00-0.23); IMMATURE GRAN PERCENT AUTO 0.7 % (0.0-0.7); LYMPHOCYTES ABSOLUTE AUTO 1.71 K/uL (0.8-3.3); LYMPHOCYTES PERCENT AUTO 23.5 % (11.4-47.7); MEAN CORPUSCULAR HEMOGLOBIN 35.6 pg (31.6-35.5); MEAN CORPUSCULAR HGB CONC 34.5 g/dL (31.6-35.5); MEAN CORPUSCULAR VOLUME 103.3 fL (81.4-99.0); MONOCYTES PERCENT AUTO 8.2 % (3.3-12.6); NEUTROPHILS ABSOLUTE AUTO 4.55 K/uL (1.0-7.6); NEUTROPHILS PERCENT AUTO 62.5 % (40.0-78.1); PLATELET COUNT,PLT 99 K/uL (130-375); RED BLOOD CELL COUNT 4.55 M/uL (4.14-5.76); WHITE BLOOD CELL COUNT,WBC 7.3 K/uL (3.2-11.0)
[2025-02-12] MEDS: LORazepam 2 MG/ML SDV IVPUSH ONE ×2 (10:55→12:26)
[2025-02-12 11:12] LABS: A/G RATIO 1.1 (1.2-2.2); ALANINE AMINOTRANSFERASE,ALT 88 U/L (12-78); ALBUMIN 4.8 g/dL (3.4-5.0); ALKALINE PHOSPHATASE 87 U/L (46-116); ASPARTATE AMNIOTRANSFERASE,AST 121 U/L (15-37); BILIRUBIN TOTAL 1.2 mg/dL (0.2-1.0); BLOOD UREA NITROGEN,BUN 2 mg/dL (7-18); C-REACTIVE PROTEIN <0.50 mg/dL (<0.50); CALCIUM 9.8 mg/dL (8.5-10.1); CHLORIDE,CL 90 mmol/L (100-108); CREATININE 1.3 mg/dL (0.8-1.3); ESTIMATED GFR 67 mL/min (>60); GLUCOSE RANDOM 197 mg/dL (74-106); PROTEIN TOTAL,TP 9.1 g/dL (6.4-8.2); SODIUM,NA 139 mmol/L (140-148)
[2025-02-12 11:13] LABS: ANION GAP 38.9 mmol/L (5.0-14.0)
[2025-02-12 11:14] LABS: CARBON DIOXIDE,CO2 13 mmol/L (21-32); POTASSIUM,K 2.9 mmol/L (3.6-5.2)
[2025-02-12] MEDS: Potassium Chloride 20 MEQ Tab.ER PO ONE (11:29)
[2025-02-12] MEDS: Magnesium Sulf/Wat 2 GM/50 mL 2 GM in Premix Bag 1 BAG IV ONE (11:29)
[2025-02-12] MEDS: Sodium Chloride 0.9% 1,000 ML IV STA ×3 (11:30→13:22)
[2025-02-12 13:32] LABS: APPEARANCE,URINE CLEAR (CLEAR); BILIRUBIN,URINE NEGATIVE (NEGATIVE); COLOR,URINE YELLOW (YELLOW); GLUCOSE,URINE 100 mg/dL (NEGATIVE); KETONES,URINE NEGATIVE (NEGATIVE); LEUKOCYTE ESTERASE,URINE NEGATIVE (NEGATIVE); NITRITE,URINE NEGATIVE (NEGATIVE); OCCULT BLOOD,URINE TRACE-INTACT (NEGATIVE); PROTEIN,URINE 100 mg/dL (NEGATIVE)
[2025-02-12 13:39] LABS: AMORPHOUS SEDIMENT,URINE NOT SEEN; AMPHETAMINES SCREEN, URINE NEGATIVE (NEGATIVE); BACTERIA,URINE NOT SEEN; BARBITURATE SCREEN,URINE NEGATIVE (NEGATIVE); BENZODIAZEPINES SCREEN,URINE PRESUMPTIVE POSITIVE (NEGATIVE); EPITHELIAL CELLS,URINE NOT SEEN; METHADONE SCREEN, URINE NEGATIVE (NEGATIVE); METHAMPHETAMINES SCREEN, URINE NEGATIVE (NEGATIVE); MUCUS,URINE FEW; OXYCODONE SCREEN,URINE NEGATIVE (NEGATIVE); PROPOXYPHENE SCREEN,URINE NEGATIVE (NEGATIVE); RBC,URINE 0-5 (0-5); THC SCREEN,URINE 50 NG/ML NEGATIVE (NEGATIVE); WBC,URINE 0-5 (0-5)
[2025-02-12] MEDS ORDERED: Diazepam 2 MG Tab PO ONE (15:31)
[2025-02-12] MEDS: Multivitamins with Iron/Calcium/Folic Acid/Minerals Tab PO ONE (15:42)
[2025-02-12] MEDS: Diazepam 5 MG Tab PO ONE (15:43)
[2025-02-12] MEDS: Thiamine 100 MG Tab PO ONE (15:43)
[2025-02-12] MEDS: PHENobarbital 32.4 MG Tab PO ONE (15:43)
[2025-02-12] MEDS: LORazepam 2 MG/ML SDV IV SCH (18:13)
[2025-02-12] MEDS ORDERED: Magnesium Hydroxide 400 MG/5 ML Susp 30 ML Cup PO PRN (18:24)
[2025-02-12] MEDS ORDERED: Sennosides/Docusate Sodium 50-8.6 MG Tab PO PRN (18:24)
[2025-02-12] MEDS ORDERED: Ondansetron 4 MG Tab.DIS PO PRN (18:24)
[2025-02-12] MEDS ORDERED: Ondansetron 4 MG/2 ML SDV IV PRN (18:24)
[2025-02-12] MEDS: Nicotine 21 MG/24 Hr Patch TRDERM SCH (18:45)
[2025-02-12] MEDS: NS + KCl 20mEq/L 1,000 ML IV SCH (18:45)
[2025-02-12] MEDS: Potassium Chloride 10 MEQ in Premix Bag 1 BAG IV SCH (18:45)
[2025-02-12] MEDS: Acetaminophen 325 MG Tab PO PRN (18:46)
[2025-02-12] MEDS: PHENobarbital Sodium 65 MG/ML SDV IVPUSH PRN (19:46)
[2025-02-12] MEDS: Melatonin 3 MG Tab PO SCH (22:11)
[2025-02-12] MEDS: Gabapentin 100 MG Cap PO SCH (22:11)
[2025-02-12] MEDS: Pantoprazole 40 MG Tab.CR PO SCH (22:11)
[2025-02-13 05:49] LABS: HEMOGLOBIN 13.2 g/dL (12.9-16.9); MEAN CORPUSCULAR HEMOGLOBIN 35.8 pg (31.6-35.5); MEAN CORPUSCULAR HGB CONC 34.7 g/dL (31.6-35.5); RED BLOOD CELL COUNT 3.69 M/uL (4.14-5.76)
[2025-02-13 06:08] LABS: ALANINE AMINOTRANSFERASE,ALT 72 U/L (12-78); ALBUMIN 3.4 g/dL (3.4-5.0); ALKALINE PHOSPHATASE 65 U/L (46-116); ASPARTATE AMNIOTRANSFERASE,AST 101 U/L (15-37); BILIRUBIN TOTAL 2.2 mg/dL (0.2-1.0); BLOOD UREA NITROGEN,BUN 2 mg/dL (7-18); CALCIUM 8.9 mg/dL (8.5-10.1); CARBON DIOXIDE,CO2 28 mmol/L (21-32); CHLORIDE,CL 101 mmol/L (100-108); CREATININE 0.9 mg/dL (0.8-1.3); EST CRCL DRUG DOSING (CG) 86.67 mL/min; ESTIMATED GFR 104 mL/min (>60); GLUCOSE RANDOM 87 mg/dL (74-106); MAGNESIUM 2.1 mg/dL (1.8-2.4); POTASSIUM,K 3.3 mmol/L (3.6-5.2); PROTEIN TOTAL,TP 6.7 g/dL (6.4-8.2); SODIUM,NA 139 mmol/L (140-148)
[2025-02-13 06:10] LABS: ANION GAP 13.3 mmol/L (5.0-14.0)
[2025-02-13] MEDS: Potassium Chloride 10 MEQ in Premix Bag 1 BAG IV SCH (08:21)
[2025-02-13] MEDS: Folic Acid 1 MG Tab PO SCH (08:26)
[2025-02-13] MEDS: Thiamine 100 MG Tab PO SCH (08:26)
[2025-02-13] MEDS: LORazepam 1 MG Tab PO SCH (08:30)
[2025-02-13] MEDS: Loperamide 2 MG Cap PO PRN (14:40)
[2025-02-13] MEDS ORDERED: Calcium Carbonate 500 MG Tab.Chew PO PRN (22:55)
[2025-02-14] MEDS: Nicotine 21 MG/24 Hr Patch TRDERM SCH ×2 (00:29→09:05)
[2025-02-14 06:00] LABS: HEMATOCRIT 39.2 % (38.4-49.7); HEMOGLOBIN 13.5 g/dL (12.9-16.9); MEAN CORPUSCULAR HEMOGLOBIN 35.7 pg (31.6-35.5); MEAN CORPUSCULAR HGB CONC 34.4 g/dL (31.6-35.5); MEAN CORPUSCULAR VOLUME 103.7 fL (81.4-99.0); RED BLOOD CELL COUNT 3.78 M/uL (4.14-5.76); WHITE BLOOD CELL COUNT,WBC 5.1 K/uL (3.2-11.0)
[2025-02-14 06:22] LABS: ALANINE AMINOTRANSFERASE,ALT 60 U/L (12-78); ALBUMIN 3.2 g/dL (3.4-5.0); ALKALINE PHOSPHATASE 66 U/L (46-116); ASPARTATE AMNIOTRANSFERASE,AST 60 U/L (15-37); BILIRUBIN TOTAL 1.2 mg/dL (0.2-1.0); BLOOD UREA NITROGEN,BUN 2 mg/dL (7-18); CALCIUM 8.8 mg/dL (8.5-10.1); CARBON DIOXIDE,CO2 24 mmol/L (21-32); CHLORIDE,CL 104 mmol/L (100-108); CREATININE 0.8 mg/dL (0.8-1.3); EST CRCL DRUG DOSING (CG) 99.69 mL/min; ESTIMATED GFR 108 mL/min (>60); GLUCOSE RANDOM 100 mg/dL (74-106); POTASSIUM,K 3.8 mmol/L (3.6-5.2); PROTEIN TOTAL,TP 6.4 g/dL (6.4-8.2); SODIUM,NA 138 mmol/L (140-148)
[2025-02-14 06:25] LABS: ANION GAP 13.8 mmol/L (5.0-14.0)
[2025-02-14] MEDS ORDERED: LORazepam 1 MG Tab PO PRN (11:20)
[2025-02-15 11:45] VITALS: BP 109/71; PULSE 105
== END 2025-02-15 14:50 | disposition home or self-care (01) | DRG 775 ==
LOC: JP.ED 10:37 → JP.ICU 16:22 → JP.MS 02-14 12:59
PROVIDERS: ADMIT Internal Medicine; ATTEND Internal Medicine
DX: F10.231 Alcohol dependence with withdrawal delirium (principal); R56.9 Unspecified convulsions; E87.29 Other acidosis; F17.210 Nicotine dependence, cigarettes, uncomplicated; K21.9 Gastro-esophageal reflux disease without esophagitis; F41.9 Anxiety disorder, unspecified; F32.A Depression, unspecified; E87.6 Hypokalemia; R19.7 Diarrhea, unspecified; Z88.5 Allergy status to narcotic agent; Z88.0 Allergy status to penicillin; Z88.1 Allergy status to other antibiotic agents; Z87.81 Personal history of (healed) traumatic fracture; Z98.890 Other specified postprocedural states
CPT/HCPCS: 36415; 70450; 80053; 80305-QW; 80307; 81001; 83605; 83735; 84132; 85025; 85027; 86140; 93005; 93010; 96361; 96365; 96366; 96375; 96376; 97112-GP; 97162-GP; 99223; 99233; 99238; 99285; 99285-25; A9270-GY; J2060; J2560; J3475; J3480; J7030

== ENCOUNTER 2025-09-04 14:22 | Emergency (ER) | payer OTHER, BC ==
[2025-09-04 15:21] VITALS: BP 128/81; PULSE 86
[2025-09-04] MEDS ORDERED: Ketorolac 30 MG/ML SDV IM ONE (15:38)
== END 2025-09-04 15:45 | disposition left against medical advice (07) ==
LOC: JP.ED 14:22
DX: G89.18 Other acute postprocedural pain (principal); M25.512 Pain in left shoulder; F17.200 Nicotine dependence, unspecified, uncomplicated; Z88.5 Allergy status to narcotic agent; Z88.1 Allergy status to other antibiotic agents; Z88.0 Allergy status to penicillin
CPT/HCPCS: 99283